=== PATIENT | female | born 1950 | race Caucasian/White ===

== ENCOUNTER → 2016-11-11 | Outpatient (REF) | payer MEDICARE, OTHER ==
[2016-11-11 17:55] LABS: FREE T4 0.96 NG/DL (0.76-1.46)
== END | disposition home or self-care (01) ==
LOC: M SFHCCAPE 07:05
PROVIDERS: ATTEND Physician Assistant
DX: E03.9 Hypothyroidism, unspecified (principal)

== ENCOUNTER → 2016-12-16 | Outpatient (REF) | payer MEDICARE, OTHER ==
[2016-12-16 20:28] LABS: FREE T4 1.09 NG/DL (0.76-1.46)
== END ==
LOC: M SFHCCAPE 07:23
PROVIDERS: ATTEND Physician Assistant
DX: E03.9 Hypothyroidism, unspecified (principal)

== ENCOUNTER → 2016-12-30 | Outpatient (CLI) | payer MEDICARE, OTHER ==
--- NOTE | 2017-01-02 19:20 | SLEEPCENT ---
DATE OF PROCEDURE: ORDERED BY: Ute Colón Nocturnal polysomnography was performed due to concern for the obstructive sleep apnea syndrome in this patient with a history of excessive somnolence and nonrestorative sleep. 7 hours and 28 minutes of data were reviewed. There were 369 minutes of sleep identified. Sleep latency was prolonged at 31 minutes. Rapid eye movement (REM) latency was prolonged at 155 minutes. Sleep architecture showed fragmentation. There was fair sleep progression and three REM periods were noted. The overall sleep efficiency was 83%. Patient's EKG showed a sinus rhythm with an average heart rate of 70 beats per minute. EEG showed reasonably normal wave forms for wake and sleep. There were 131 respiratory events identified of 10 seconds in duration or greater for an apnea-hypopnea index of 21.3. The events were primarily obstructive, not exclusive to sleep stage or body posture associated with oxygen desaturations into the lower 80s. There was also some limb activity noted, with at least three trains of 30 events. Limb movement arousal index was 9.4. IMPRESSION: 1. Moderate obstructive sleep apnea syndrome (G47.33). Apnea-hypopnea index 21.3. 2. Mild periodic limb movement disorder (G47.61). Limb movement arousal index 9.4. RECOMMENDATIONS: Patient should be encouraged to return to the sleep disorder center for pressure therapy. In the interim, alcohol and sedative avoidance should be practiced, and caution exercised during the operation of motor vehicles. Pending the response to pressure therapy, interventions to reduce the frequency of arousals from limb activity may also be helpful.
== END ==
LOC: M SLEEP 19:44
PROVIDERS: ATTEND Nurse Practitioner Adult Health
DX: G47.33 Obstructive sleep apnea (adult) (pediatric) (principal); G47.61 Periodic limb movement disorder

== ENCOUNTER → 2017-04-15 | Outpatient (CLI) | payer MEDICARE, OTHER | LOC: M SLEEP 19:42 | PROVIDERS: ATTEND Nurse Practitioner Adult Health | DX: G47.33 Obstructive sleep apnea (adult) (pediatric) (principal); G47.61 Periodic limb movement disorder ==

== ENCOUNTER → 2017-09-10 | Outpatient (REF) | payer MEDICARE, OTHER ==
[2017-09-10 18:08] LABS: BASO # 0.1 10^3/uL (0.0-0.2); EOS # 0.3 10^3/uL (0.0-0.50); EOS % 3.9 % (0.0-3.0); IMMATURE GRANULOCYTE % 0.4 % (0-0); LYMPH # 0.8 10^3/uL (1.5-4.5); LYMPH % 11.9 % (24.0-44.0); MEAN CORPUSCULAR HEMOGLOBIN 25.8 pg (27.0-33.0); MEAN CORPUSCULAR HGB CONC 31.3 g/dl (32.0-36.5); MEAN CORPUSCULAR VOLUME 82.5 fl (80.0-96.0); MONO # 0.5 10^3/uL (0.0-0.8); MONO % 7.3 % (0.0-5.0); NEUTROPHILS # 5.3 10^3/uL (1.8-7.7); NEUTROPHILS % 75.5 % (36.0-66.0); PLATELET COUNT, AUTOMATED 331 10^3/uL (150-450); RED CELL DISTRIBUTION WIDTH 14.9 % (11.5-14.5)
[2017-09-10 18:24] LABS: ALBUMIN 3.7 GM/DL (3.2-5.2); ALBUMIN/GLOBULIN RATIO 1.09 (1.00-1.93); ALKALINE PHOSPHATASE 104 U/L (45-117); ALT/SGPT 18 U/L (12-78); ANION GAP 7 MEQ/L (8-16); AST/SGOT 10 U/L (7-37); BILIRUBIN,TOTAL 0.7 MG/DL (0.2-1.0); BLOOD UREA NITROGEN 15 MG/DL (7-18); CARBON DIOXIDE LEVEL 26 MEQ/L (21-32); CHLORIDE LEVEL 107 MEQ/L (98-107); CHOLESTEROL LEVEL 235 MG/DL (<200); CREATININE FOR GFR 0.78 MG/DL (0.55-1.02); FREE T4 0.93 NG/DL (0.76-1.46); GLOMERULAR FILTRATION RATE > 60.0 (>45); GLUCOSE, FASTING 102 MG/DL (80-110); POTASSIUM SERUM 4.4 MEQ/L (3.5-5.1); SODIUM LEVEL 140 MEQ/L (136-145); TOTAL PROTEIN 7.1 GM/DL (6.4-8.2); TRIGLYCERIDES LEVEL 228 MG/DL (<150)
== END ==
LOC: M SFHCCAPE 07:18
PROVIDERS: ATTEND Physician Assistant
DX: E03.9 Hypothyroidism, unspecified (principal); E55.9 Vitamin D deficiency, unspecified

== ENCOUNTER → 2018-04-14 | Outpatient (REF) | payer MEDICARE, OTHER ==
[2018-04-16 14:14] LABS: ANTINUCLEAR ANTIBODIES DIRECT Negative (Negative)
== END ==
LOC: M LABDRWCV 16:10
DX: L80 Vitiligo (principal); Z79.899 Other long term (current) drug therapy
CPT/HCPCS: 84443; 86038

== ENCOUNTER → 2018-04-14 | Outpatient (REF) | payer MEDICARE, OTHER ==
[2018-04-14 17:17] LABS: BASO # 0.1 10^3/uL (0.0-0.2); BASO % 1.5 % (0.0-1.0); EOS # 0.2 10^3/uL (0.0-0.50); EOS % 4.6 % (0.0-3.0); HEMATOCRIT 34.4 % (36.0-47.0); HEMOGLOBIN 10.6 g/dl (12.0-15.5); IMMATURE GRANULOCYTE % 0.2 % (0-3.0); LYMPH # 1.1 10^3/uL (1.5-4.5); MEAN CORPUSCULAR HEMOGLOBIN 24.9 pg (27.0-33.0); MEAN CORPUSCULAR HGB CONC 30.8 g/dl (32.0-36.5); MEAN CORPUSCULAR VOLUME 80.9 fl (80.0-96.0); MONO # 0.4 10^3/uL (0.0-0.8); NEUTROPHILS # 2.7 10^3/uL (1.8-7.7); NEUTROPHILS % 59.7 % (36.0-66.0); PLATELET COUNT, AUTOMATED 295 10^3/uL (150-450); RED BLOOD COUNT 4.25 10^6/uL (4.00-5.40); RED CELL DISTRIBUTION WIDTH 14.9 % (11.5-14.5); WHITE BLOOD COUNT 4.6 10^3/uL (4.0-10.0)
[2018-04-14 18:01] LABS: ALBUMIN 3.7 GM/DL (3.2-5.2); ALBUMIN/GLOBULIN RATIO 1.19 (1.00-1.93); ALKALINE PHOSPHATASE 93 U/L (45-117); ALT/SGPT 20 U/L (12-78); ANION GAP 9 MEQ/L (8-16); AST/SGOT 16 U/L (7-37); BILIRUBIN,TOTAL 0.5 MG/DL (0.2-1.0); BLOOD UREA NITROGEN 21 MG/DL (7-18); CALCIUM LEVEL 8.9 MG/DL (8.8-10.2); CARBON DIOXIDE LEVEL 27 MEQ/L (21-32); CHLORIDE LEVEL 109 MEQ/L (98-107); CHOLESTEROL LEVEL 225 MG/DL (<200); CREATININE FOR GFR 0.77 MG/DL (0.55-1.30); FREE T4 0.86 NG/DL (0.76-1.46); GLOMERULAR FILTRATION RATE > 60.0 (>45); GLUCOSE, FASTING 100 MG/DL (70-100); HDL CHOLESTEROL 55 MG/DL (>40); LDL CHOLESTEROL 142.4 MG/DL (<100); NON-HDL-C 170 MG/DL; POTASSIUM SERUM 4.2 MEQ/L (3.5-5.1); SODIUM LEVEL 145 MEQ/L (136-145); TOTAL PROTEIN 6.8 GM/DL (6.4-8.2); TRIGLYCERIDES LEVEL 138 MG/DL (<150)
[2018-04-14 18:02] LABS: TOTAL 25(OH) VITAMIN D 17.9 NG/ML (30.0-100.0)
== END ==
LOC: M SFHCCAPE 07:02
DX: I10 Essential (primary) hypertension (principal); E03.9 Hypothyroidism, unspecified; E78.5 Hyperlipidemia, unspecified; E55.9 Vitamin D deficiency, unspecified
CPT/HCPCS: 84443

== ENCOUNTER → 2018-05-03 | Outpatient (REF) | payer MEDICARE, OTHER ==
[2018-05-03 20:08] LABS: BASO # 0.1 10^3/uL (0.0-0.2); EOS # 0.1 10^3/uL (0.0-0.50); EOS % 2.3 % (0.0-3.0); HEMATOCRIT 35.9 % (36.0-47.0); HEMOGLOBIN 11.2 g/dl (12.0-15.5); IMMATURE GRANULOCYTE % 0.2 % (0-3.0); LYMPH # 0.9 10^3/uL (1.5-4.5); LYMPH % 15.2 % (24.0-44.0); MEAN CORPUSCULAR HEMOGLOBIN 24.9 pg (27.0-33.0); MEAN CORPUSCULAR HGB CONC 31.2 g/dl (32.0-36.5); MONO # 0.4 10^3/uL (0.0-0.8); MONO % 6.6 % (0.0-5.0); NEUTROPHILS # 4.3 10^3/uL (1.8-7.7); NEUTROPHILS % 74.7 % (36.0-66.0); PLATELET COUNT, AUTOMATED 321 10^3/uL (150-450); RED BLOOD COUNT 4.49 10^6/uL (4.00-5.40); RETIC HEMOGLOBIN EQUIVALENT 28.8 pg (24-36); RETICULOCYTE # 52.5 10^9/L (17-77); RETICULOCYTE % 1.2 % (0.5-1.5); WHITE BLOOD COUNT 5.7 10^3/uL (4.0-10.0)
[2018-05-03 20:18] LABS: FERRITIN 6 NG/ML (8-252); IRON (FE) 49 UG/DL (50-170); PERCENT SATURATION 12.1 % (13.2-45.0); TOTAL IRON BINDING CAPACITY 405 UG/DL (250-450)
[2018-05-03 20:23] LABS: APPEARANCE, URINE HAZY (CLEAR); BACTERIA, URINE AUTO NEGATIVE (NEGATIVE); BILIRUBIN, URINE AUTO NEGATIVE (NEGATIVE); BLOOD, URINE BLOOD NEGATIVE (NEGATIVE); COLOR, URINE YELLOW (YELLOW); GLUCOSE, URINE (UA) AUTO NEGATIVE (NEGATIVE); KETONE, URINE AUTO NEGATIVE (NEGATIVE); LEUKOCYTE ESTERASE, URINE AUTO 3+ (NEGATIVE); NITRITE, URINE AUTO NEGATIVE (NEGATIVE); PROTEIN, URINE AUTO NEGATIVE (NEGATIVE); RBC, URINE AUTO 0 /HPF (0-3); SPECIFIC GRAVITY URINE AUTO 1.014 (1.002-1.035); SQUAMOUS EPITHELIAL CELL UR AU 2 /HPF (0-6); UROBILINOGEN, URINE AUTO 0.2 mg/dL (0.0-2.0); WBC, URINE AUTO 2 /HPF (0-3)
[2018-05-05 09:05] LABS: HAPTOGLOBIN 106 mg/dL (34-200)
[2018-05-05 09:05] LABS: LDL DIRECT 147 mg/dL (0-99)
== END ==
LOC: M SFHCCAPE 09:47
DX: D64.9 Anemia, unspecified (principal); L80 Vitiligo; E55.9 Vitamin D deficiency, unspecified; Z12.11 Encounter for screening for malignant neoplasm of colon; K21.9 Gastro-esophageal reflux disease without esophagitis; M17.0 Bilateral primary osteoarthritis of knee; I10 Essential (primary) hypertension; G47.33 Obstructive sleep apnea (adult) (pediatric); Z79.899 Other long term (current) drug therapy
CPT/HCPCS: 83010

== ENCOUNTER → 2018-06-29 | Outpatient (REF) | payer MEDICARE, OTHER ==
[2018-07-01 14:18] LABS: TISSUE TRANSGLUTAMINASE IgA <2 U/mL (0-3)
== END ==
LOC: M LABDRWCV 16:24
DX: D50.9 Iron deficiency anemia, unspecified (principal)
CPT/HCPCS: 82784

== ENCOUNTER → 2018-06-29 | Outpatient (REF) | payer MEDICARE, OTHER ==
[2018-06-29 17:48] LABS: BASO # 0.1 10^3/uL (0.0-0.2); BASO % 1.2 % (0.0-1.0); EOS # 0.3 10^3/uL (0.0-0.50); EOS % 5.4 % (0.0-3.0); HEMATOCRIT 34.3 % (36.0-47.0); HEMOGLOBIN 10.7 g/dl (12.0-15.5); IMMATURE GRANULOCYTE % 0.2 % (0-3.0); LYMPH # 1.3 10^3/uL (1.5-4.5); LYMPH % 26.4 % (24.0-44.0); MEAN CORPUSCULAR HGB CONC 31.2 g/dl (32.0-36.5); MEAN CORPUSCULAR VOLUME 80.1 fl (80.0-96.0); MONO # 0.4 10^3/uL (0.0-0.8); MONO % 8.5 % (0.0-5.0); NEUTROPHILS # 2.8 10^3/uL (1.8-7.7); NEUTROPHILS % 58.3 % (36.0-66.0); PLATELET COUNT, AUTOMATED 337 10^3/uL (150-450); RED BLOOD COUNT 4.28 10^6/uL (4.00-5.40); RED CELL DISTRIBUTION WIDTH 16.1 % (11.5-14.5); WHITE BLOOD COUNT 4.8 10^3/uL (4.0-10.0)
[2018-06-29 18:08] LABS: ALBUMIN 3.7 GM/DL (3.2-5.2); ALBUMIN/GLOBULIN RATIO 1.16 (1.00-1.93); ALKALINE PHOSPHATASE 91 U/L (45-117); ALT/SGPT 20 U/L (12-78); ANION GAP 9 MEQ/L (8-16); AST/SGOT 12 U/L (7-37); BILIRUBIN,TOTAL 0.5 MG/DL (0.2-1.0); BLOOD UREA NITROGEN 18 MG/DL (7-18); CARBON DIOXIDE LEVEL 28 MEQ/L (21-32); CHLORIDE LEVEL 107 MEQ/L (98-107); CREATININE FOR GFR 0.76 MG/DL (0.55-1.30); GLOMERULAR FILTRATION RATE > 60.0 (>45); GLUCOSE, FASTING 98 MG/DL (70-100); IRON (FE) 34 UG/DL (50-170); PERCENT SATURATION 9.2 % (13.2-45.0); POTASSIUM SERUM 4.2 MEQ/L (3.5-5.1); SODIUM LEVEL 144 MEQ/L (136-145); TOTAL IRON BINDING CAPACITY 369 UG/DL (250-450); TOTAL PROTEIN 6.9 GM/DL (6.4-8.2)
[2018-06-29 18:09] LABS: FERRITIN 6 NG/ML (8-252); FREE T4 0.79 NG/DL (0.76-1.46)
[2018-06-30 08:04] LABS: TOTAL 25(OH) VITAMIN D 43.1 NG/ML (30.0-100.0)
== END ==
LOC: M SFHCCAPE 07:16
DX: E03.9 Hypothyroidism, unspecified (principal); E55.9 Vitamin D deficiency, unspecified; I10 Essential (primary) hypertension; D50.9 Iron deficiency anemia, unspecified
CPT/HCPCS: 83550

== ENCOUNTER 2018-07-16 08:38 | Day surgery (SDC) | payer MEDICARE, OTHER ==
[~2018-07-16 08:38] MED LIST: LIDOCAINE 2% INJ 100 MG/5 ML SDV (FOR ANES.) As Ordered; PROPOFOL 200 MG/20 ML VIAL As Ordered
[2018-07-16] MEDS: NS 1,000 ML IV (09:03)
[2018-07-16] MEDS ORDERED: PROPOFOL 200 MG/20 ML VIAL As Ordered (09:59)
== END 2018-07-16 10:49 | disposition home or self-care (01) ==
LOC: M OPP 08:38
DX: D50.9 Iron deficiency anemia, unspecified (principal); D12.5 Benign neoplasm of sigmoid colon; K57.30 Diverticulosis of large intestine without perforation or abscess without bleeding; K21.0 Gastro-esophageal reflux disease with esophagitis; K44.9 Diaphragmatic hernia without obstruction or gangrene; M19.90 Unspecified osteoarthritis, unspecified site; R06.83 Snoring; G47.30 Sleep apnea, unspecified; Z85.848 Personal history of malignant neoplasm of other parts of nervous tissue; Z88.5 Allergy status to narcotic agent; Z88.0 Allergy status to penicillin; Z79.899 Other long term (current) drug therapy; Z80.1 Family history of malignant neoplasm of trachea, bronchus and lung; Z80.0 Family history of malignant neoplasm of digestive organs; Z80.3 Family history of malignant neoplasm of breast
CPT/HCPCS: 45385

== ENCOUNTER → 2018-08-12 | Outpatient (CLI) | payer MEDICARE, OTHER | LOC: M RAD 14:14 | DX: T18.4XXA Foreign body in colon, initial encounter (principal); T18.3XXA Foreign body in small intestine, initial encounter; X58.XXXA Exposure to other specified factors, initial encounter; Y92.9 Unspecified place or not applicable | CPT/HCPCS: 74019 ==

== ENCOUNTER → 2018-11-04 | Outpatient (REF) | payer MEDICARE, OTHER ==
[~2018-11-04] MED LIST changes: +HYDR25TAB PO; -LIDOCAINE 2% INJ 100 MG/5 ML SDV (FOR ANES.) As Ordered; +LORA-243 PO; +MULTCAP PO; -PROPOFOL 200 MG/20 ML VIAL As Ordered; +VITA50005 PO
[2018-11-04 17:42] LABS: BASO # 0.1 10^3/uL (0.0-0.2); BASO % 1.2 % (0.0-1.0); EOS # 0.4 10^3/uL (0.0-0.50); EOS % 6.3 % (0.0-3.0); HEMATOCRIT 36.7 % (36.0-47.0); HEMOGLOBIN 11.6 g/dl (12.0-15.5); LYMPH # 1.3 10^3/uL (1.5-4.5); LYMPH % 23.3 % (24.0-44.0); MEAN CORPUSCULAR HEMOGLOBIN 25.2 pg (27.0-33.0); MEAN CORPUSCULAR HGB CONC 31.6 g/dl (32.0-36.5); MEAN CORPUSCULAR VOLUME 79.6 fl (80.0-96.0); MONO # 0.5 10^3/uL (0.0-0.8); MONO % 8.1 % (0.0-5.0); NEUTROPHILS # 3.5 10^3/uL (1.8-7.7); NEUTROPHILS % 60.7 % (36.0-66.0); PLATELET COUNT, AUTOMATED 319 10^3/uL (150-450); RED BLOOD COUNT 4.61 10^6/uL (4.00-5.40); WHITE BLOOD COUNT 5.7 10^3/uL (4.0-10.0)
[2018-11-04 17:45] LABS: ALBUMIN 3.8 GM/DL (3.2-5.2); ALT/SGPT 20 U/L (12-78); BILIRUBIN,TOTAL 0.5 MG/DL (0.2-1.0); BLOOD UREA NITROGEN 20 MG/DL (7-18); CALCIUM LEVEL 8.7 MG/DL (8.8-10.2); CARBON DIOXIDE LEVEL 28 MEQ/L (21-32); CHLORIDE LEVEL 105 MEQ/L (98-107); CHOLESTEROL LEVEL 239 MG/DL (<200); CHOLESTEROL RISK RATIO 3.793 (<5); CREATININE FOR GFR 0.86 MG/DL (0.55-1.30); FERRITIN 7 NG/ML (8-252); FREE T4 0.96 NG/DL (0.76-1.46); GLOMERULAR FILTRATION RATE > 60.0 (>39); GLUCOSE, FASTING 93 MG/DL (70-100); HDL CHOLESTEROL 63 MG/DL (>40); IRON (FE) 41 UG/DL (50-170); LDL CHOLESTEROL 152 MG/DL (<100); NON-HDL-C 176 MG/DL; PERCENT SATURATION 10.8 % (13.2-45.0); SODIUM LEVEL 141 MEQ/L (136-145); TOTAL IRON BINDING CAPACITY 381 UG/DL (250-450); TOTAL PROTEIN 6.9 GM/DL (6.4-8.2); TRIGLYCERIDES LEVEL 122 MG/DL (<150)
[2018-11-04 17:48] LABS: TOTAL 25(OH) VITAMIN D 45.4 NG/ML (30.0-100.0)
== END ==
LOC: M SFHCCAPE 07:19
PROVIDERS: ATTEND Physician Assistant
DX: D50.9 Iron deficiency anemia, unspecified (principal); E78.5 Hyperlipidemia, unspecified; E03.9 Hypothyroidism, unspecified; E55.9 Vitamin D deficiency, unspecified

== ENCOUNTER → 2019-01-04 | Outpatient (REF) | payer MEDICARE, OTHER ==
[2019-01-04 17:07] LABS: BASO # 0.1 10^3/uL (0.0-0.2); BASO % 1.2 % (0.0-1.0); EOS # 0.3 10^3/uL (0.0-0.50); EOS % 5.4 % (0.0-3.0); HEMATOCRIT 36.1 % (36.0-47.0); HEMOGLOBIN 11.3 g/dl (12.0-15.5); LYMPH # 1.1 10^3/uL (1.5-4.5); MEAN CORPUSCULAR HEMOGLOBIN 25.2 pg (27.0-33.0); MEAN CORPUSCULAR HGB CONC 31.3 g/dl (32.0-36.5); MEAN CORPUSCULAR VOLUME 80.6 fl (80.0-96.0); MONO # 0.5 10^3/uL (0.0-0.8); MONO % 10.1 % (0.0-5.0); NEUTROPHILS % 60.1 % (36.0-66.0); PLATELET COUNT, AUTOMATED 297 10^3/uL (150-450); RED BLOOD COUNT 4.48 10^6/uL (4.00-5.40)
[2019-01-04 17:15] LABS: ALBUMIN 3.7 GM/DL (3.2-5.2); ALT/SGPT 21 U/L (12-78); BILIRUBIN,TOTAL 0.4 MG/DL (0.2-1.0); BLOOD UREA NITROGEN 24 MG/DL (7-18); CALCIUM LEVEL 8.6 MG/DL (8.8-10.2); CARBON DIOXIDE LEVEL 31 MEQ/L (21-32); CHLORIDE LEVEL 105 MEQ/L (98-107); CREATININE FOR GFR 0.77 MG/DL (0.55-1.30); FERRITIN 9 NG/ML (8-252); FREE T4 1.11 NG/DL (0.76-1.46); GLOMERULAR FILTRATION RATE > 60.0 (>39); GLUCOSE, FASTING 101 MG/DL (70-100); IRON (FE) 32 UG/DL (50-170); PERCENT SATURATION 8.5 % (13.2-45.0); POTASSIUM SERUM 4.3 MEQ/L (3.5-5.1); SODIUM LEVEL 141 MEQ/L (136-145); TOTAL IRON BINDING CAPACITY 377 UG/DL (250-450); TOTAL PROTEIN 6.8 GM/DL (6.4-8.2)
== END ==
LOC: M SFHCCAPE 07:13
PROVIDERS: ATTEND Physician Assistant
DX: D50.9 Iron deficiency anemia, unspecified (principal); E03.9 Hypothyroidism, unspecified

== ENCOUNTER → 2019-04-05 | Outpatient (REF) | payer MEDICARE, OTHER ==
[2019-04-05 17:09] LABS: ALBUMIN 3.5 GM/DL (3.2-5.2); ALT/SGPT 25 U/L (12-78); BILIRUBIN,TOTAL 0.4 MG/DL (0.2-1.0); BLOOD UREA NITROGEN 17 MG/DL (7-18); CALCIUM LEVEL 8.5 MG/DL (8.8-10.2); CARBON DIOXIDE LEVEL 26 MEQ/L (21-32); CHLORIDE LEVEL 109 MEQ/L (98-107); CHOLESTEROL LEVEL 205 MG/DL (<200); CHOLESTEROL RISK RATIO 3.596 (<5); CREATININE FOR GFR 0.78 MG/DL (0.55-1.30); FERRITIN 10 NG/ML (8-252); GLOMERULAR FILTRATION RATE > 60.0 (>39); GLUCOSE, FASTING 94 MG/DL (70-100); HDL CHOLESTEROL 57 MG/DL (>40); IRON (FE) 36 UG/DL (50-170); LDL CHOLESTEROL 124 MG/DL (<100); NON-HDL-C 148 MG/DL; PERCENT SATURATION 9.9 % (13.2-45.0); POTASSIUM SERUM 4.2 MEQ/L (3.5-5.1); SODIUM LEVEL 143 MEQ/L (136-145); TOTAL 25(OH) VITAMIN D 51.1 NG/ML (30.0-100.0); TOTAL IRON BINDING CAPACITY 362 UG/DL (250-450); TOTAL PROTEIN 6.9 GM/DL (6.4-8.2); TRIGLYCERIDES LEVEL 121 MG/DL (<150)
[2019-04-05 17:11] LABS: BASO # 0.1 10^3/uL (0.0-0.2); BASO % 1.7 % (0.0-1.0); EOS # 0.2 10^3/uL (0.0-0.50); EOS % 5.7 % (0.0-3.0); HEMATOCRIT 36.8 % (36.0-47.0); HEMOGLOBIN 11.9 g/dl (12.0-15.5); LYMPH # 1.1 10^3/uL (1.5-4.5); MEAN CORPUSCULAR HEMOGLOBIN 27.9 pg (27.0-33.0); MEAN CORPUSCULAR HGB CONC 32.3 g/dl (32.0-36.5); MEAN CORPUSCULAR VOLUME 86.2 fl (80.0-96.0); MONO # 0.4 10^3/uL (0.0-0.8); MONO % 9.7 % (0.0-5.0); NEUTROPHILS # 2.4 10^3/uL (1.8-7.7); NEUTROPHILS % 57.4 % (36.0-66.0); PLATELET COUNT, AUTOMATED 287 10^3/uL (150-450); RED BLOOD COUNT 4.27 10^6/uL (4.00-5.40); WHITE BLOOD COUNT 4.2 10^3/uL (4.0-10.0)
[2019-04-05 17:25] LABS: HEMOGLOBIN A1c 5.7 %
== END ==
LOC: M SFHCCAPE 07:31
PROVIDERS: ATTEND Physician Assistant
DX: D50.9 Iron deficiency anemia, unspecified (principal); E78.5 Hyperlipidemia, unspecified; E03.9 Hypothyroidism, unspecified; E55.9 Vitamin D deficiency, unspecified

== ENCOUNTER → 2019-07-12 | Outpatient (REF) | payer MEDICARE, OTHER ==
[2019-07-12 17:34] LABS: BASO # 0.1 10^3/uL (0.0-0.2); BASO % 0.9 % (0.0-1.0); EOS # 0.5 10^3/uL (0.0-0.5); EOS % 8.8 % (0.0-3.0); HEMATOCRIT 40.3 % (36.0-47.0); HEMOGLOBIN 13.2 g/dl (12.0-15.5); LYMPH # 1.2 10^3/uL (1.5-5.0); LYMPH % 22.5 % (24.0-44.0); MEAN CORPUSCULAR HEMOGLOBIN 28.2 pg (27.0-33.0); MEAN CORPUSCULAR HGB CONC 32.8 g/dl (32.0-36.5); MEAN CORPUSCULAR VOLUME 86.1 fl (80.0-96.0); MONO # 0.5 10^3/uL (0.0-0.8); MONO % 9.6 % (0.0-5.0); NEUTROPHILS # 3.1 10^3/uL (1.5-8.5); PLATELET COUNT, AUTOMATED 277 10^3/uL (150-450); RED BLOOD COUNT 4.68 10^6/uL (4.00-5.40); WHITE BLOOD COUNT 5.3 10^3/uL (4.0-10.0)
[2019-07-12 17:47] LABS: ALBUMIN 3.6 GM/DL (3.2-5.2); ALT/SGPT 19 U/L (12-78); BILIRUBIN,TOTAL 0.6 MG/DL (0.2-1.0); BLOOD UREA NITROGEN 24 MG/DL (7-18); CALCIUM LEVEL 8.9 MG/DL (8.8-10.2); CARBON DIOXIDE LEVEL 30 MEQ/L (21-32); CHLORIDE LEVEL 105 MEQ/L (98-107); CHOLESTEROL LEVEL 196 MG/DL (<200); CREATININE FOR GFR 0.74 MG/DL (0.55-1.30); FREE T4 0.91 NG/DL (0.76-1.46); GLOMERULAR FILTRATION RATE > 60.0 (>39); GLUCOSE, FASTING 94 MG/DL (70-100); HDL CHOLESTEROL 50 MG/DL (>40); LDL CHOLESTEROL 104 MG/DL (<100); NON-HDL-C 146 MG/DL; POTASSIUM SERUM 4.1 MEQ/L (3.5-5.1); SODIUM LEVEL 141 MEQ/L (136-145); TOTAL PROTEIN 6.7 GM/DL (6.4-8.2); TRIGLYCERIDES LEVEL 208 MG/DL (<150)
[2019-07-12 17:49] LABS: TOTAL 25(OH) VITAMIN D 48.5 NG/ML (30.0-100.0)
[2019-07-12 19:56] LABS: HEMOGLOBIN A1c 5.8 %
== END ==
LOC: M SFHCCAPE 07:03
PROVIDERS: ATTEND Physician Assistant
DX: I10 Essential (primary) hypertension (principal); E03.9 Hypothyroidism, unspecified; R73.09 Other abnormal glucose; E78.5 Hyperlipidemia, unspecified; E55.9 Vitamin D deficiency, unspecified

== ENCOUNTER → 2019-11-07 | Outpatient (REF) | payer MEDICARE, OTHER | LOC: M SFHCCAPE 11:18 | PROVIDERS: ATTEND Physician Assistant | DX: J01.90 Acute sinusitis, unspecified (principal) ==

== ENCOUNTER → 2019-11-24 | Outpatient (CLI) | payer MEDICARE, OTHER ==
--- NOTE | 2019-11-24 16:51 | REP ---
Right ankle: Four views. History: Acute right ankle pain. Findings: Four views right ankle demonstrate moderate to advanced ankle joint osteoarthritis. There is mild medial and anterior soft tissue swelling. Achilles and plantar calcaneal spurring is noted. There are soft tissue calcifications in the distal calf. Impression: Moderate to advanced ankle joint osteoarthritis. No acute bony abnormality is noted. Heel spurs. 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 There is some diffuse soft tissue swelling. Electronically Signed by Marquis Grissom MD 11/24/2019 04:59 P
== END ==
LOC: M CLY 14:57
PROVIDERS: ATTEND Nurse Practitioner Family
DX: M19.071 Primary osteoarthritis, right ankle and foot (principal); M25.571 Pain in right ankle and joints of right foot
CPT/HCPCS: 36415; 73610; 80048; 84550; 85025; G0463

== ENCOUNTER → 2019-11-24 | Outpatient (REF) | payer MEDICARE, OTHER ==
[2019-11-24 17:51] LABS: BLOOD UREA NITROGEN 18 MG/DL (7-18); CALCIUM LEVEL 9.2 MG/DL (8.8-10.2); CARBON DIOXIDE LEVEL 30 MEQ/L (21-32); CHLORIDE LEVEL 106 MEQ/L (98-107); CREATININE FOR GFR 0.77 MG/DL (0.55-1.30); GLOMERULAR FILTRATION RATE > 60.0 (>39); GLUCOSE, FASTING 102 MG/DL (70-100); POTASSIUM SERUM 3.9 MEQ/L (3.5-5.1); SODIUM LEVEL 141 MEQ/L (136-145); URIC ACID 3.8 MG/DL (2.6-6.0)
[2019-11-24 17:52] LABS: BASO # 0.1 10^3/uL (0.0-0.2); EOS # 0.3 10^3/uL (0.0-0.5); EOS % 4.7 % (0.0-3.0); HEMATOCRIT 39.7 % (36.0-47.0); LYMPH # 1.1 10^3/uL (1.5-5.0); MEAN CORPUSCULAR HEMOGLOBIN 29.1 pg (27.0-33.0); MEAN CORPUSCULAR HGB CONC 32.7 g/dl (32.0-36.5); MONO # 0.6 10^3/uL (0.0-0.8); MONO % 9.6 % (0.0-5.0); NEUTROPHILS # 4.2 10^3/uL (1.5-8.5); NEUTROPHILS % 67.2 % (36.0-66.0); PLATELET COUNT, AUTOMATED 265 10^3/uL (150-450); RED BLOOD COUNT 4.46 10^6/uL (4.00-5.40); WHITE BLOOD COUNT 6.2 10^3/uL (4.0-10.0)
== END ==
LOC: M SFHCCAPE 10:54
PROVIDERS: ATTEND Nurse Practitioner Family
DX: M25.571 Pain in right ankle and joints of right foot (principal)

== ENCOUNTER → 2019-12-08 | Outpatient (REF) | payer MEDICARE, OTHER ==
[2019-12-08 16:44] LABS: BASO % 0.5 % (0.0-1.0); EOS # 0.3 10^3/uL (0.0-0.5); EOS % 4.7 % (0.0-3.0); HEMOGLOBIN 13.2 g/dl (12.0-15.5); LYMPH # 0.9 10^3/uL (1.5-5.0); LYMPH % 13.3 % (24.0-44.0); MEAN CORPUSCULAR HEMOGLOBIN 28.5 pg (27.0-33.0); MEAN CORPUSCULAR HGB CONC 31.4 g/dl (32.0-36.5); MEAN CORPUSCULAR VOLUME 90.7 fl (80.0-96.0); MONO # 0.5 10^3/uL (0.0-0.8); MONO % 7.8 % (0.0-5.0); NEUTROPHILS # 4.8 10^3/uL (1.5-8.5); NEUTROPHILS % 73.5 % (36.0-66.0); PLATELET COUNT, AUTOMATED 295 10^3/uL (150-450); RED BLOOD COUNT 4.63 10^6/uL (4.00-5.40); WHITE BLOOD COUNT 6.6 10^3/uL (4.0-10.0)
[2019-12-08 16:55] LABS: ALBUMIN 3.6 GM/DL (3.2-5.2); ALT/SGPT 20 U/L (12-78); BILIRUBIN,TOTAL 0.5 MG/DL (0.2-1.0); BLOOD UREA NITROGEN 24 MG/DL (7-18); CALCIUM LEVEL 9.2 MG/DL (8.8-10.2); CARBON DIOXIDE LEVEL 30 MEQ/L (21-32); CHLORIDE LEVEL 106 MEQ/L (98-107); CHOLESTEROL LEVEL 196 MG/DL (<200); CHOLESTEROL RISK RATIO 3.213 (<5); FREE T4 1.28 NG/DL (0.76-1.46); GLOMERULAR FILTRATION RATE > 60.0 (>39); GLUCOSE, FASTING 94 MG/DL (70-100); HDL CHOLESTEROL 61 MG/DL (>40); LDL CHOLESTEROL 117 MG/DL (<100); NON-HDL-C 135 MG/DL; POTASSIUM SERUM 4.3 MEQ/L (3.5-5.1); SODIUM LEVEL 141 MEQ/L (136-145); THYROID STIMULATING HORMONE 0.756 uIU/ML (0.358-3.740); TOTAL PROTEIN 6.8 GM/DL (6.4-8.2); TRIGLYCERIDES LEVEL 92 MG/DL (<150)
[2019-12-09 11:10] LABS: TOTAL 25(OH) VITAMIN D 56.3 NG/ML (30.0-100.0)
== END ==
LOC: M SFHCCAPE 07:45
PROVIDERS: ATTEND Physician Assistant
DX: E55.9 Vitamin D deficiency, unspecified (principal); E78.5 Hyperlipidemia, unspecified

== ENCOUNTER → 2020-08-27 | Outpatient (REF) | payer MEDICARE, OTHER ==
[2020-08-27 13:58] LABS: HEMATOCRIT 43.4 % (36.0-47.0); HEMOGLOBIN 13.9 g/dl (12.0-15.5); MEAN CORPUSCULAR HEMOGLOBIN 29.6 pg (27.0-33.0); MEAN CORPUSCULAR VOLUME 92.5 fl (80.0-96.0); PLATELET COUNT, AUTOMATED 289 10^3/uL (150-450); RED BLOOD COUNT 4.69 10^6/uL (4.00-5.40); WHITE BLOOD COUNT 5.4 10^3/uL (4.0-10.0)
[2020-08-27 14:40] LABS: BLOOD UREA NITROGEN 17 MG/DL (7-18); CALCIUM LEVEL 9.7 MG/DL (8.8-10.2); CARBON DIOXIDE LEVEL 29 MEQ/L (21-32); CHLORIDE LEVEL 104 MEQ/L (98-107); CHOLESTEROL LEVEL 246 MG/DL (<200); FERRITIN 32 NG/ML (8-252); GLOMERULAR FILTRATION RATE > 60.0 (>39); GLUCOSE, FASTING 106 MG/DL (70-100); HDL CHOLESTEROL 60 MG/DL (>40); IRON (FE) 95 UG/DL (50-170); LDL CHOLESTEROL 155 MG/DL (<100); NON-HDL-C 186 MG/DL; PERCENT SATURATION 30.4 % (13.2-45.0); POTASSIUM SERUM 4.1 MEQ/L (3.5-5.1); SODIUM LEVEL 137 MEQ/L (136-145); TOTAL 25(OH) VITAMIN D 72.7 NG/ML (30.0-100.0); TOTAL IRON BINDING CAPACITY 313 UG/DL (250-450); TRIGLYCERIDES LEVEL 154 MG/DL (<150)
== END ==
LOC: M SFHCPLAZ 09:45
PROVIDERS: ATTEND Family Medicine
DX: D50.9 Iron deficiency anemia, unspecified (principal); E78.2 Mixed hyperlipidemia; I10 Essential (primary) hypertension; E03.9 Hypothyroidism, unspecified; E55.9 Vitamin D deficiency, unspecified
CPT/HCPCS: 36415; 80048; 80061; 82306; 82728; 83550; 84443; 85027; G0463

== ENCOUNTER → 2021-01-01 | Outpatient (REF) | payer MEDICARE, OTHER ==
[~2021-01-01] MED LIST changes: +HYDR-3490 PO; -HYDR25TAB PO
[2021-01-01 14:24] LABS: HEMATOCRIT 42.9 % (36.0-47.0); HEMOGLOBIN 14.1 g/dl (12.0-15.5); MEAN CORPUSCULAR HEMOGLOBIN 30.6 pg (27.0-33.0); MEAN CORPUSCULAR HGB CONC 32.9 g/dl (32.0-36.5); MEAN CORPUSCULAR VOLUME 93.1 fl (80.0-96.0); PLATELET COUNT, AUTOMATED 263 10^3/uL (150-450); RED BLOOD COUNT 4.61 10^6/uL (4.00-5.40)
[2021-01-01 14:27] LABS: BLOOD UREA NITROGEN 26 MG/DL (7-18); CALCIUM LEVEL 9.7 MG/DL (8.8-10.2); CARBON DIOXIDE LEVEL 30 MEQ/L (21-32); CHLORIDE LEVEL 107 MEQ/L (98-107); CREATININE FOR GFR 0.75 MG/DL (0.55-1.30); GLOMERULAR FILTRATION RATE > 60.0 (>39); GLUCOSE, FASTING 103 MG/DL (70-100); POTASSIUM SERUM 4.4 MEQ/L (3.5-5.1); SODIUM LEVEL 142 MEQ/L (136-145)
== END ==
LOC: M SFHCPLAZ 10:26
PROVIDERS: ATTEND Family Medicine
DX: Z01.818 Encounter for other preprocedural examination (principal); M25.562 Pain in left knee
CPT/HCPCS: 36415; 80048; 85027; 93005; G0463

== ENCOUNTER → 2021-06-06 | Outpatient (REF) | payer MEDICARE, OTHER ==
[2021-06-06 12:39] LABS: BLOOD UREA NITROGEN 16 MG/DL (7-18); CALCIUM LEVEL 8.6 MG/DL (8.8-10.2); CARBON DIOXIDE LEVEL 30 MEQ/L (21-32); CHLORIDE LEVEL 108 MEQ/L (98-107); CHOLESTEROL LEVEL 123 MG/DL (<200); CREATININE FOR GFR 0.57 MG/DL (0.55-1.30); GLOMERULAR FILTRATION RATE > 60.0 (>39); GLUCOSE, FASTING 87 MG/DL (70-100); HDL CHOLESTEROL 50 MG/DL (>40); LDL CHOLESTEROL 52 MG/DL (<100); NON-HDL-C 73 MG/DL; SODIUM LEVEL 142 MEQ/L (136-145); THYROID STIMULATING HORMONE 0.927 uIU/ML (0.358-3.740); TOTAL 25(OH) VITAMIN D 82.5 NG/ML (30.0-100.0); TRIGLYCERIDES LEVEL 105 MG/DL (<150)
== END ==
LOC: M SFHCCLAY 08:29
PROVIDERS: ATTEND Family Medicine
DX: E78.2 Mixed hyperlipidemia (principal); I10 Essential (primary) hypertension; E03.9 Hypothyroidism, unspecified; E55.9 Vitamin D deficiency, unspecified

== ENCOUNTER → 2022-09-10 | Outpatient (REF) | payer MEDICARE, OTHER ==
[2022-09-10 12:18] LABS: BASO # 0.1 10^3/uL (0.0-0.2); EOS # 0.3 10^3/uL (0.0-0.5); EOS % 4.1 % (0.0-3.0); HEMOGLOBIN 12.2 g/dl (12.0-15.5); LYMPH # 0.9 10^3/uL (1.5-5.0); LYMPH % 14.5 % (24.0-44.0); MEAN CORPUSCULAR HGB CONC 32.1 g/dl (32.0-36.5); MEAN CORPUSCULAR VOLUME 93.6 fl (80.0-96.0); MONO # 0.5 10^3/uL (0.0-0.8); MONO % 8.1 % (2.0-8.0); NEUTROPHILS # 4.5 10^3/uL (1.5-8.5); NEUTROPHILS % 72.1 % (36.0-66.0); PLATELET COUNT, AUTOMATED 315 10^3/uL (150-450); RED BLOOD COUNT 4.06 10^6/uL (4.00-5.40); WHITE BLOOD COUNT 6.3 10^3/uL (4.0-10.0)
[2022-09-10 13:02] LABS: ALBUMIN 3.8 GM/DL (3.2-5.2); ALT/SGPT 28 U/L (12-78); BILIRUBIN,TOTAL 0.6 MG/DL (0.2-1.0); BLOOD UREA NITROGEN 16 MG/DL (7-18); CALCIUM LEVEL 9.5 MG/DL (8.8-10.2); CARBON DIOXIDE LEVEL 30 MEQ/L (21-32); CHLORIDE LEVEL 106 MEQ/L (98-107); CHOLESTEROL LEVEL 144 MG/DL (<200); CHOLESTEROL RISK RATIO 2.322 (<5); CREATININE FOR GFR 0.73 MG/DL (0.55-1.30); FREE T4 1.09 NG/DL (0.76-1.46); GLOMERULAR FILTRATION RATE > 60.0 (>39); GLUCOSE, FASTING 95 MG/DL (70-100); HDL CHOLESTEROL 62 MG/DL (>40); LDL CHOLESTEROL 54 MG/DL (<100); NON-HDL-C 82 MG/DL; SODIUM LEVEL 139 MEQ/L (136-145); TOTAL PROTEIN 6.8 GM/DL (6.4-8.2); TRIGLYCERIDES LEVEL 141 MG/DL (<150)
[2022-09-10 20:27] LABS: HEMOGLOBIN A1c 5.2 %
== END ==
LOC: M SFHCCLAY 09:01
PROVIDERS: ATTEND Physician Assistant
DX: E03.9 Hypothyroidism, unspecified (principal); E78.2 Mixed hyperlipidemia; Z13.1 Encounter for screening for diabetes mellitus

== ENCOUNTER → 2022-11-24 | Outpatient (CLI) | payer MEDICARE, OTHER | LOC: M CLY 10:27 | PROVIDERS: ATTEND Physician Assistant | DX: M25.512 Pain in left shoulder (principal) ==

== ENCOUNTER 2023-04-04 22:37 | Inpatient (IN) | payer MEDICARE, OTHER ==
[~2023-04-04] VITALS: Ht 167.6 cm; Wt 97.5 kg
[2023-04-04] MEDS ORDERED: ONDANSETRON 4MG 2ML VIAL IV ONE (23:05)
[2023-04-04] MEDS ORDERED: fentaNYL 100 MCG/2 ML INJECTION IV ONE (23:05)
[2023-04-04 23:17] LABS: BASO # 0.1 10^3/uL (0.0-0.2); BASO % 0.4 % (0.0-1.0); EOS # 0.2 10^3/uL (0.0-0.5); EOS % 1.7 % (0.0-3.0); HEMATOCRIT 33.3 % (36.0-47.0); HEMOGLOBIN 10.9 g/dl (12.0-15.5); LYMPH # 1.1 10^3/uL (1.5-5.0); LYMPH % 9.5 % (24.0-44.0); MEAN CORPUSCULAR HEMOGLOBIN 29.4 pg (27.0-33.0); MEAN CORPUSCULAR HGB CONC 32.7 g/dl (32.0-36.5); MEAN CORPUSCULAR VOLUME 89.8 fl (80.0-96.0); MONO # 0.7 10^3/uL (0.0-0.8); MONO % 5.5 % (2.0-8.0); NEUTROPHILS # 9.6 10^3/uL (1.5-8.5); PLATELET COUNT, AUTOMATED 251 10^3/uL (150-450); RED BLOOD COUNT 3.71 10^6/uL (4.00-5.40); WHITE BLOOD COUNT 11.7 10^3/uL (4.0-10.0)
[2023-04-04 23:40] LABS: CPK CREATINE PHOSPHOKINASE 208 U/L (34-145)
[2023-04-04 23:41] LABS: BLOOD UREA NITROGEN 18 MG/DL (9-23); CALCIUM LEVEL 8.7 MG/DL (8.3-10.6); CARBON DIOXIDE LEVEL 28 MMOL/L (20-31); CHLORIDE LEVEL 107 MMOL/L (98-107); CK-MB VALUE MASS 2.1 NG/ML (<3.6); CREATININE FOR GFR 0.72 MG/DL (0.55-1.30); GLOMERULAR FILTRATION RATE > 60.0 (>39); GLUCOSE, FASTING 151 MG/DL (74-106); POTASSIUM SERUM 3.6 MMOL/L (3.5-5.1); SODIUM LEVEL 141 MMOL/L (136-145)
[2023-04-04 23:47] LABS: RSV AMPLIFICATION NEGATIVE (NEGATIVE)
[2023-04-05] VITALS (7 sets, daily range): BP systolic 99–161; BP diastolic 53–67
[2023-04-05] MEDS ORDERED: ACETAMINOPHEN 1000MG 100ML IV BAG IV ONE (00:05)
[2023-04-05] MEDS ORDERED: carisoprodoL 350 MG TAB PO PRN (01:00)
[2023-04-05] MEDS ORDERED: ONDANSETRON 4MG 2ML VIAL IV PRN ×2 (01:00→05:00)
[2023-04-05] MEDS ORDERED: ERGO500029 PO (01:02)
[2023-04-05] MEDS ORDERED: ATOR1TAB21 PO (01:02)
[2023-04-05] MEDS ORDERED: LOSA100T46 PO (01:02)
[2023-04-05] MEDS ORDERED: AMLO1TAB24 PO (01:02)
[2023-04-05] MEDS ORDERED: IBUP80TA PO (01:02)
[2023-04-05] MEDS ORDERED: ACET-683 PO (01:02)
[2023-04-05] MEDS ORDERED: THERTAB52 PO (01:02)
[2023-04-05] MEDS ORDERED: LEVO75TA4 PO (01:02)
[2023-04-05] MEDS ORDERED: HOME MED LIST COMPLETE! XX SCH (01:05)
[2023-04-05] MEDS: LR 1,000 ML IV SCH ×3 (01:35→21:35)
[2023-04-05] MEDS: amLODIPine 5 MG TAB PO SCH ×2 (01:40→21:00)
[2023-04-05] MEDS: KETOROLAC 30 MG/ML 1ML VIAL IV PRN ×2 (01:41→08:15)
[2023-04-05] MEDS ORDERED: LIDOCAINE 5% (LIDODERM) PATCH TD ONE (02:00)
[2023-04-05] MEDS: LOSARTAN 50MG TABLET PO SCH ×2 (03:07→21:00)
[2023-04-05] MEDS: LEVOTHYROXINE 75MCG TABLET (0.075MG) PO SCH (06:23)
[2023-04-05 06:56] LABS: BASO % 0.3 % (0.0-1.0); EOS % 0.1 % (0.0-3.0); HEMATOCRIT 32.6 % (36.0-47.0); HEMOGLOBIN 10.7 g/dl (12.0-15.5); LYMPH # 0.8 10^3/uL (1.5-5.0); LYMPH % 5.9 % (24.0-44.0); MEAN CORPUSCULAR HEMOGLOBIN 29.4 pg (27.0-33.0); MEAN CORPUSCULAR HGB CONC 32.8 g/dl (32.0-36.5); MEAN CORPUSCULAR VOLUME 89.6 fl (80.0-96.0); MONO # 0.6 10^3/uL (0.0-0.8); MONO % 4.7 % (2.0-8.0); NEUTROPHILS # 11.4 10^3/uL (1.5-8.5); NEUTROPHILS % 88.5 % (36.0-66.0); PLATELET COUNT, AUTOMATED 239 10^3/uL (150-450); RED BLOOD COUNT 3.64 10^6/uL (4.00-5.40); WHITE BLOOD COUNT 12.8 10^3/uL (4.0-10.0)
[2023-04-05 07:18] LABS: BLOOD UREA NITROGEN 20 MG/DL (9-23); CALCIUM LEVEL 8.5 MG/DL (8.3-10.6); CARBON DIOXIDE LEVEL 28 MMOL/L (20-31); CHLORIDE LEVEL 108 MMOL/L (98-107); CREATININE FOR GFR 0.65 MG/DL (0.55-1.30); GLOMERULAR FILTRATION RATE > 60.0 (>39); GLUCOSE, FASTING 124 MG/DL (74-106); POTASSIUM SERUM 4.1 MMOL/L (3.5-5.1); SODIUM LEVEL 140 MMOL/L (136-145)
[2023-04-05 07:19] LABS: IRON (FE) 29 UG/DL (50-170); PERCENT SATURATION 8.8 % (13.2-45.0); TOTAL IRON BINDING CAPACITY 329 UG/DL (250-425)
[2023-04-05 07:21] LABS: FERRITIN 8.6 NG/ML (7.3-270.7); FOLATE 23.79 NG/ML (>5.4)
[2023-04-05] MEDS: CETIRIZINE (ZyrTEC) 10 MG TAB PO SCH (08:59)
[2023-04-05] MEDS: FLUTICASONE PROP 0.05% NASAL SPRAY 16 GM (FLONASE) NARES SCH ×2 (08:59→21:00)
[2023-04-05] MEDS: DOCUSATE SODIUM 100MG CAPSULE PO SCH ×2 (09:00→20:28)
[2023-04-05] MEDS: MULTIVITAMINS/MINERALS THERAP 1 TAB PO SCH (09:00)
[2023-04-05] MEDS: hydroCHLOROthiazide 12.5 MG CAPSULE PO SCH (09:00)
[2023-04-05] MEDS: ATORVASTATIN 20 MG TAB PO SCH (09:01)
[2023-04-05] MEDS: ACETAMINOPHEN TAB 650MG DOSE (2X325MG) PO PRN (11:00)
[2023-04-05] MEDS ORDERED: fentaNYL 100 MCG/2 ML INJECTION IV PRN ×2 (14:25→16:45)
[2023-04-05] MEDS ORDERED: HYDROMORPHONE HCL 0.5 MG/ 0.5 ML SYRINGE IV PRN (14:25)
[2023-04-05] MEDS ORDERED: fentaNYL 100 MCG/2 ML INJECTION As Ordered ONE ×2 (14:47→16:03)
[2023-04-05] MEDS ORDERED: GLYCOPYRROLATE INJ 0.2 MG/ML 2 ML VIAL As Ordered ONE ×2 (15:02→15:03)
[2023-04-05] MEDS ORDERED: ROCURONIUM BROMIDE 50MG/5ML VIAL As Ordered ONE ×2 (15:04→16:03)
[2023-04-05] MEDS ORDERED: TRANEXAMIC ACID 100 MG/ML 10ML VIAL As Ordered ONE (15:11)
[2023-04-05] MEDS ORDERED: CLINDAMYCIN 900MG/50ML PREMIX BAG As Ordered ONE (15:11)
[2023-04-05] MEDS ORDERED: SUGAMMADEX SODIUM 500 MG/5 ML VIAL (BRIDION) As Ordered ONE (15:17)
[2023-04-05] MEDS ORDERED: LIDOCAINE 2% 100MG/5ML SDV (FOR ANES.) As Ordered ONE (16:03)
[2023-04-05] MEDS ORDERED: propofoL 200 MG/20 ML VIAL As Ordered ONE (16:03)
[2023-04-05] MEDS ORDERED: ePHEDrine SULFATE 25 MG/5 ML(5MG/ML) SYRINGE As Ordered ONE (16:16)
[2023-04-05] MEDS ORDERED: fentaNYL 250 MCG/5 ML INJECTION As Ordered ONE (16:26)
[2023-04-05] MEDS ORDERED: VANCOMYCIN 1000MG/20ML VIAL As Ordered ONE (16:39)
[2023-04-05] MEDS ORDERED: KETOROLAC 60MG 2ML VIAL As Ordered ONE (16:50)
[2023-04-05] MEDS ORDERED: BUPIVACAINE/EPIN 0.5% 30ML VIAL As Ordered ONE (17:25)
[2023-04-05] MEDS ORDERED: LIDOCAINE 1% SDV 30ML VIAL As Ordered ONE (17:25)
[2023-04-05 18:47] LABS: HEMATOCRIT 29.4 % (36.0-47.0); HEMOGLOBIN 9.5 g/dl (12.0-15.5); MEAN CORPUSCULAR HEMOGLOBIN 29.1 pg (27.0-33.0); MEAN CORPUSCULAR HGB CONC 32.3 g/dl (32.0-36.5); MEAN CORPUSCULAR VOLUME 90.2 fl (80.0-96.0); PLATELET COUNT, AUTOMATED 253 10^3/uL (150-450); RED BLOOD COUNT 3.26 10^6/uL (4.00-5.40); WHITE BLOOD COUNT 22.5 10^3/uL (4.0-10.0)
[2023-04-05] MEDS: CLINDAMYCIN 900 MG in IV 1 EA IV SCH (20:29)
[2023-04-06] VITALS: BP 117/60
[2023-04-06 02:02] VITALS: BP 117/58
[2023-04-06] MEDS: LEVOTHYROXINE 75MCG TABLET (0.075MG) PO SCH (06:15)
[2023-04-06] MEDS: ACETAMINOPHEN TAB 650MG DOSE (2X325MG) PO PRN (06:15)
[2023-04-06] MEDS: CLINDAMYCIN 900 MG in IV 1 EA IV SCH ×2 (06:16→14:14)
[2023-04-06 06:41] VITALS: BP 103/66
[2023-04-06] MEDS ORDERED: ENOXAPARIN 40MG/0.4ML SYRINGE (J1650 PER 10MG) SC SCH (09:00)
[2023-04-06] MEDS: MULTIVITAMINS/MINERALS THERAP 1 TAB PO SCH (09:19)
[2023-04-06] MEDS: hydroCHLOROthiazide 12.5 MG CAPSULE PO SCH (09:19)
[2023-04-06] MEDS: CETIRIZINE (ZyrTEC) 10 MG TAB PO SCH (09:19)
[2023-04-06] MEDS: ATORVASTATIN 20 MG TAB PO SCH (09:19)
[2023-04-06] MEDS: DOCUSATE SODIUM 100MG CAPSULE PO SCH (09:19)
[2023-04-06] MEDS: FLUTICASONE PROP 0.05% NASAL SPRAY 16 GM (FLONASE) NARES SCH (09:25)
[2023-04-06 10:00] VITALS: BP 131/93
[2023-04-06] MEDS: traMADol 50 MG TAB PO PRN ×2 (10:02→16:59)
[2023-04-06] MEDS ORDERED: TRAM50TA2 PO (12:30)
[2023-04-06] MEDS ORDERED: LOVE1INJ SC (12:36)
[2023-04-06 14:00] VITALS: BP 126/82
== END 2023-04-06 18:40 | DRG 482 ==
LOC: M ED 22:37 → EDBD 22:37 → M ED INP 04-05 00:29 → ENRESERV 04-05 04:14 → M MS5PR 04-05 05:00
PROVIDERS: ADMIT Internal Medicine; ATTEND Internal Medicine
PROC: 0QS606Z Reposition Right Upper Femur with Intramedullary Internal Fixation Device, Open Approach (ICD-10-PCS; principal; 2023-04-05 14:00)
DX: S72.141A Displaced intertrochanteric fracture of right femur, initial encounter for closed fracture (principal); Y93.H2 Activity, gardening and landscaping; Y92.017 Garden or yard in single-family (private) house as the place of occurrence of the external cause; Y99.8 Other external cause status; W18.30XA Fall on same level, unspecified, initial encounter; I10 Essential (primary) hypertension; G47.33 Obstructive sleep apnea (adult) (pediatric); E03.9 Hypothyroidism, unspecified; J30.2 Other seasonal allergic rhinitis; Z79.890 Hormone replacement therapy; Z79.899 Other long term (current) drug therapy; M16.11 Unilateral primary osteoarthritis, right hip; D64.9 Anemia, unspecified; H91.93 Unspecified hearing loss, bilateral; Z97.4 Presence of external hearing-aid; Z96.653 Presence of artificial knee joint, bilateral; Z85.848 Personal history of malignant neoplasm of other parts of nervous tissue; Z88.0 Allergy status to penicillin; Z88.5 Allergy status to narcotic agent

== ENCOUNTER 2023-04-06 11:27 | Inpatient (IN) | payer MEDICARE, OTHER ==
[~2023-04-06] VITALS: Ht 167.6 cm; Wt 95.5 kg
[~2023-04-06 11:27] MED LIST changes: +ACET-683 PO; +AMLO1TAB24 PO; +ATOR1TAB21 PO; +ERGO500029 PO; +IBUP80TA PO; +LEVO75TA4 PO; +LOSA100T46 PO; +THERTAB52 PO
[2023-04-06] MEDS ORDERED: TRAM50TA2 PO (12:30)
[2023-04-06] MEDS ORDERED: LOVE1INJ SC (12:36)
[2023-04-06] MEDS ORDERED: HOME MED LIST COMPLETE! XX SCH (13:45)
[2023-04-06] MEDS ORDERED: BISACODYL 10MG SUPP PR PRN (16:15)
[2023-04-06] MEDS ORDERED: ONDANSETRON 4MG TAB PO PRN (16:15)
[2023-04-06 19:00] VITALS: BP 121/56; TEMP 97.8; O2SAT 91
[2023-04-06 20:00] VITALS: BP 121/56; TEMP 98.9; O2SAT 98
[2023-04-06] MEDS: traMADol 50 MG TAB PO PRN (20:34)
[2023-04-06] MEDS: amLODIPine 5 MG TAB PO SCH (20:34)
[2023-04-06] MEDS: ACETAMINOPHEN 500 MG TAB PO SCH (20:35)
[2023-04-06] MEDS: FLUTICASONE PROP 0.05% NASAL SPRAY 16 GM (FLONASE) NARES SCH (20:35)
[2023-04-06] MEDS: LOSARTAN 50MG TABLET PO SCH (20:35)
[2023-04-06] MEDS: SENNA 8.6 MG TAB (SENOKOT) PO SCH (21:00)
[2023-04-06] MEDS: DOCUSATE SODIUM 100MG CAPSULE PO SCH (21:00)
[2023-04-06] MEDS: REMEDY PHYTOPLEX Z-GUARD PASTE 113GM TUBE (FROM STOREROOM PRODUCT) TOP SCH (21:16)
[2023-04-07] VITALS (11 sets, daily range): BP systolic 105–140; BP diastolic 53–62; TEMP 98.7–99.2; O2SAT 94–99
[2023-04-07] MEDS: LEVOTHYROXINE 75MCG TABLET (0.075MG) PO SCH (05:58)
[2023-04-07 06:24] LABS: BASO % 0.3 % (0.0-1.0); EOS # 0.1 10^3/uL (0.0-0.5); EOS % 1.4 % (0.0-3.0); LYMPH # 1.4 10^3/uL (1.5-5.0); LYMPH % 13.3 % (24.0-44.0); MEAN CORPUSCULAR HEMOGLOBIN 29.5 pg (27.0-33.0); MEAN CORPUSCULAR HGB CONC 32.7 g/dl (32.0-36.5); MEAN CORPUSCULAR VOLUME 90.3 fl (80.0-96.0); MONO # 0.8 10^3/uL (0.0-0.8); MONO % 8.2 % (2.0-8.0); NEUTROPHILS # 7.8 10^3/uL (1.5-8.5); NEUTROPHILS % 76.3 % (36.0-66.0); PLATELET COUNT, AUTOMATED 192 10^3/uL (150-450); RED BLOOD COUNT 2.27 10^6/uL (4.00-5.40); WHITE BLOOD COUNT 10.2 10^3/uL (4.0-10.0)
[2023-04-07 06:32] LABS: HEMATOCRIT 20.5 % (36.0-47.0); HEMOGLOBIN 6.7 g/dl (12.0-15.5)
[2023-04-07 06:49] LABS: ALBUMIN 2.7 G/DL (3.2-5.2); ALKALINE PHOSPHATASE 64 U/L (46-116); ALT/SGPT 19 U/L (7.0-40); AST/SGOT 19 U/L (<34); BILIRUBIN,TOTAL 0.6 MG/DL (0.3-1.2); BLOOD UREA NITROGEN 27 MG/DL (9-23); CALCIUM LEVEL 8.1 MG/DL (8.3-10.6); CARBON DIOXIDE LEVEL 28 MMOL/L (20-31); CHLORIDE LEVEL 105 MMOL/L (98-107); CREATININE FOR GFR 0.78 MG/DL (0.55-1.30); GLOMERULAR FILTRATION RATE > 60.0 (>39); GLUCOSE, FASTING 123 MG/DL (74-106); POTASSIUM SERUM 4.1 MMOL/L (3.5-5.1); SODIUM LEVEL 138 MMOL/L (136-145); TOTAL PROTEIN 4.8 G/DL (5.7-8.2)
[2023-04-07] MEDS ORDERED: ACETAMINOPHEN TAB 650MG DOSE (2X325MG) PO ONE (07:35)
[2023-04-07] MEDS ORDERED: diphenhydrAMINE 25MG CAP PO ONE (07:35)
[2023-04-07 08:20] LABS: MEAN CORPUSCULAR HEMOGLOBIN 29.3 pg (27.0-33.0); MEAN CORPUSCULAR HGB CONC 32.5 g/dl (32.0-36.5); PLATELET COUNT, AUTOMATED 175 10^3/uL (150-450); RED BLOOD COUNT 2.29 10^6/uL (4.00-5.40); WHITE BLOOD COUNT 11.8 10^3/uL (4.0-10.0)
[2023-04-07 08:24] LABS: HEMATOCRIT 20.6 % (36.0-47.0)
[2023-04-07 08:25] LABS: HEMOGLOBIN 6.7 g/dl (12.0-15.5)
[2023-04-07] MEDS: CETIRIZINE (ZyrTEC) 10 MG TAB PO SCH (08:31)
[2023-04-07] MEDS: ENOXAPARIN 40MG/0.4ML SYRINGE (J1650 PER 10MG) SC SCH (08:31)
[2023-04-07] MEDS: traMADol 50 MG TAB PO PRN ×2 (08:32→16:41)
[2023-04-07] MEDS: ATORVASTATIN 20 MG TAB PO SCH (08:32)
[2023-04-07] MEDS: ACETAMINOPHEN 500 MG TAB PO SCH ×3 (08:32→20:17)
[2023-04-07] MEDS: MULTIVITAMINS/MINERALS THERAP 1 TAB PO SCH (08:32)
[2023-04-07] MEDS: PANTOPRAZOLE 40MG TAB (PROTONIX) PO SCH (08:32)
[2023-04-07] MEDS: REMEDY PHYTOPLEX Z-GUARD PASTE 113GM TUBE (FROM STOREROOM PRODUCT) TOP SCH ×3 (08:33→21:00)
[2023-04-07] MEDS: DOCUSATE SODIUM 100MG CAPSULE PO SCH ×2 (08:33→21:00)
[2023-04-07] MEDS: FLUTICASONE PROP 0.05% NASAL SPRAY 16 GM (FLONASE) NARES SCH ×2 (08:33→21:00)
[2023-04-07] MEDS: hydroCHLOROthiazide 12.5 MG CAPSULE PO SCH (08:33)
[2023-04-07] MEDS ORDERED: FUROSEMIDE 20MG/2ML VIAL IV ONE (17:05)
[2023-04-07] MEDS: LOSARTAN 50MG TABLET PO SCH (20:17)
[2023-04-07] MEDS: amLODIPine 5 MG TAB PO SCH (20:18)
[2023-04-07] MEDS: SENNA 8.6 MG TAB (SENOKOT) PO SCH (21:00)
[2023-04-07] MEDS ORDERED: traMADol 50 MG TAB PO PRN (21:00)
[2023-04-07 22:06] LABS: HEMATOCRIT 25.4 % (36.0-47.0); HEMOGLOBIN 8.5 g/dl (12.0-15.5)
[2023-04-08] MEDS: LEVOTHYROXINE 75MCG TABLET (0.075MG) PO SCH (05:21)
[2023-04-08 05:31] LABS: BASO # 0.1 10^3/uL (0.0-0.2); BASO % 0.6 % (0.0-1.0); EOS # 0.3 10^3/uL (0.0-0.5); EOS % 3.8 % (0.0-3.0); HEMOGLOBIN 8.9 g/dl (12.0-15.5); LYMPH # 1.1 10^3/uL (1.5-5.0); LYMPH % 12.2 % (24.0-44.0); MEAN CORPUSCULAR HEMOGLOBIN 29.7 pg (27.0-33.0); MONO # 0.7 10^3/uL (0.0-0.8); MONO % 7.4 % (2.0-8.0); NEUTROPHILS # 6.7 10^3/uL (1.5-8.5); NEUTROPHILS % 75.7 % (36.0-66.0); PLATELET COUNT, AUTOMATED 180 10^3/uL (150-450); WHITE BLOOD COUNT 8.8 10^3/uL (4.0-10.0)
[2023-04-08 06:00] VITALS: BP 130/60; TEMP 98.6; O2SAT 97
[2023-04-08] MEDS: traMADol 50 MG TAB PO SCH ×2 (06:47→11:00)
[2023-04-08] MEDS: hydroCHLOROthiazide 12.5 MG CAPSULE PO SCH (08:43)
[2023-04-08] MEDS: MULTIVITAMINS/MINERALS THERAP 1 TAB PO SCH (08:43)
[2023-04-08] MEDS: DOCUSATE SODIUM 100MG CAPSULE PO SCH ×2 (08:43→20:44)
[2023-04-08] MEDS: PANTOPRAZOLE 40MG TAB (PROTONIX) PO SCH (08:43)
[2023-04-08] MEDS: FLUTICASONE PROP 0.05% NASAL SPRAY 16 GM (FLONASE) NARES SCH ×2 (08:44→20:46)
[2023-04-08] MEDS: ACETAMINOPHEN 500 MG TAB PO SCH ×3 (08:44→20:46)
[2023-04-08] MEDS: ENOXAPARIN 40MG/0.4ML SYRINGE (J1650 PER 10MG) SC SCH (08:44)
[2023-04-08] MEDS: ATORVASTATIN 20 MG TAB PO SCH (08:44)
[2023-04-08] MEDS: REMEDY PHYTOPLEX Z-GUARD PASTE 113GM TUBE (FROM STOREROOM PRODUCT) TOP SCH ×3 (08:44→20:46)
[2023-04-08] MEDS: CETIRIZINE (ZyrTEC) 10 MG TAB PO SCH (08:44)
[2023-04-08 12:04] VITALS: O2SAT 93
[2023-04-08 14:00] VITALS: BP 127/60; TEMP 98.4; O2SAT 98
[2023-04-08 20:00] VITALS: BP 117/58; TEMP 99.5; O2SAT 96
[2023-04-08] MEDS: SENNA 8.6 MG TAB (SENOKOT) PO SCH (20:44)
[2023-04-08] MEDS: amLODIPine 5 MG TAB PO SCH (20:45)
[2023-04-08] MEDS: LOSARTAN 50MG TABLET PO SCH (20:46)
[2023-04-09 00:51] VITALS: O2SAT 77; O2SAT 92
[2023-04-09] MEDS: LEVOTHYROXINE 75MCG TABLET (0.075MG) PO SCH (05:38)
[2023-04-09 06:00] VITALS: BP 128/59; TEMP 99; O2SAT 97
[2023-04-09] MEDS: traMADol 50 MG TAB PO SCH ×2 (06:25→12:28)
[2023-04-09] MEDS: ACETAMINOPHEN 500 MG TAB PO SCH ×3 (07:07→22:15)
[2023-04-09] MEDS: hydroCHLOROthiazide 12.5 MG CAPSULE PO SCH (07:07)
[2023-04-09] MEDS: PANTOPRAZOLE 40MG TAB (PROTONIX) PO SCH (07:08)
[2023-04-09] MEDS: ATORVASTATIN 20 MG TAB PO SCH (07:08)
[2023-04-09] MEDS: CETIRIZINE (ZyrTEC) 10 MG TAB PO SCH (07:08)
[2023-04-09] MEDS: REMEDY PHYTOPLEX Z-GUARD PASTE 113GM TUBE (FROM STOREROOM PRODUCT) TOP SCH ×3 (07:08→22:20)
[2023-04-09] MEDS: MULTIVITAMINS/MINERALS THERAP 1 TAB PO SCH (07:08)
[2023-04-09] MEDS: FLUTICASONE PROP 0.05% NASAL SPRAY 16 GM (FLONASE) NARES SCH ×2 (07:08→21:00)
[2023-04-09] MEDS: ENOXAPARIN 40MG/0.4ML SYRINGE (J1650 PER 10MG) SC SCH (07:08)
[2023-04-09] MEDS: DOCUSATE SODIUM 100MG CAPSULE PO SCH ×2 (07:42→21:00)
[2023-04-09] MEDS: LORATADINE 10 MG TAB PO SCH (09:00)
[2023-04-09] MEDS ORDERED: PILL CUTTER 1 EACH XX PRN (11:00)
[2023-04-09 11:14] LABS: BASO % 0.3 % (0.0-1.0); EOS # 0.1 10^3/uL (0.0-0.5); EOS % 0.6 % (0.0-3.0); HEMATOCRIT 30.4 % (36.0-47.0); HEMOGLOBIN 9.8 g/dl (12.0-15.5); LYMPH # 0.5 10^3/uL (1.5-5.0); LYMPH % 4.1 % (24.0-44.0); MEAN CORPUSCULAR HEMOGLOBIN 29.3 pg (27.0-33.0); MEAN CORPUSCULAR HGB CONC 32.2 g/dl (32.0-36.5); MEAN CORPUSCULAR VOLUME 90.7 fl (80.0-96.0); MONO # 0.5 10^3/uL (0.0-0.8); MONO % 4.3 % (2.0-8.0); NEUTROPHILS # 10.7 10^3/uL (1.5-8.5); NEUTROPHILS % 90.2 % (36.0-66.0); PLATELET COUNT, AUTOMATED 267 10^3/uL (150-450); RED BLOOD COUNT 3.35 10^6/uL (4.00-5.40); WHITE BLOOD COUNT 11.8 10^3/uL (4.0-10.0)
[2023-04-09 11:56] LABS: BLOOD UREA NITROGEN 18 MG/DL (9-23); CALCIUM LEVEL 7.9 MG/DL (8.3-10.6); CARBON DIOXIDE LEVEL 30 MMOL/L (20-31); CHLORIDE LEVEL 102 MMOL/L (98-107); CREATININE FOR GFR 0.59 MG/DL (0.55-1.30); GLOMERULAR FILTRATION RATE > 60.0 (>39); GLUCOSE, FASTING 121 MG/DL (74-106); SODIUM LEVEL 137 MMOL/L (136-145)
[2023-04-09 14:00] VITALS: BP 122/56; TEMP 98; O2SAT 98
[2023-04-09] MEDS: LACTOBACILLUS ACIDOPHILUS CAP (BACID) PO SCH (17:47)
[2023-04-09] MEDS: LevoFLOXacin 250 MG TABLET PO SCH (17:47)
[2023-04-09 20:00] VITALS: BP 154/67; TEMP 98; O2SAT 95
[2023-04-09] MEDS: SENNA 8.6 MG TAB (SENOKOT) PO SCH (21:00)
[2023-04-09 22:11] VITALS: BP 167/69
[2023-04-09] MEDS: amLODIPine 5 MG TAB PO SCH (22:15)
[2023-04-09] MEDS: LOSARTAN 50MG TABLET PO SCH (22:17)
[2023-04-10 05:48] VITALS: BP 142/63; TEMP 98.9; O2SAT 92
[2023-04-10] MEDS: traMADol 50 MG TAB PO SCH ×2 (06:01→11:07)
[2023-04-10] MEDS: LEVOTHYROXINE 75MCG TABLET (0.075MG) PO SCH (06:02)
[2023-04-10] MEDS: LevoFLOXacin 250 MG TABLET PO SCH (06:02)
[2023-04-10 07:19] LABS: BASO % 0.5 % (0.0-1.0); EOS # 0.4 10^3/uL (0.0-0.5); EOS % 4.3 % (0.0-3.0); HEMATOCRIT 28.4 % (36.0-47.0); HEMOGLOBIN 9.3 g/dl (12.0-15.5); LYMPH # 0.8 10^3/uL (1.5-5.0); LYMPH % 8.9 % (24.0-44.0); MEAN CORPUSCULAR HEMOGLOBIN 29.7 pg (27.0-33.0); MEAN CORPUSCULAR HGB CONC 32.7 g/dl (32.0-36.5); MEAN CORPUSCULAR VOLUME 90.7 fl (80.0-96.0); MONO # 0.8 10^3/uL (0.0-0.8); MONO % 8.5 % (2.0-8.0); NEUTROPHILS # 6.8 10^3/uL (1.5-8.5); NEUTROPHILS % 76.9 % (36.0-66.0); PLATELET COUNT, AUTOMATED 258 10^3/uL (150-450); RED BLOOD COUNT 3.13 10^6/uL (4.00-5.40); WHITE BLOOD COUNT 8.8 10^3/uL (4.0-10.0)
[2023-04-10] MEDS: ACETAMINOPHEN 500 MG TAB PO SCH ×3 (07:25→20:35)
[2023-04-10] MEDS: ATORVASTATIN 20 MG TAB PO SCH (07:25)
[2023-04-10] MEDS: PANTOPRAZOLE 40MG TAB (PROTONIX) PO SCH (07:25)
[2023-04-10] MEDS: LACTOBACILLUS ACIDOPHILUS CAP (BACID) PO SCH ×2 (07:25→18:55)
[2023-04-10] MEDS: LORATADINE 10 MG TAB PO SCH (07:25)
[2023-04-10] MEDS: hydroCHLOROthiazide 12.5 MG CAPSULE PO SCH (07:26)
[2023-04-10] MEDS: DOCUSATE SODIUM 100MG CAPSULE PO SCH ×2 (07:26→20:35)
[2023-04-10] MEDS: FLUTICASONE PROP 0.05% NASAL SPRAY 16 GM (FLONASE) NARES SCH ×2 (07:26→20:37)
[2023-04-10] MEDS: MULTIVITAMINS/MINERALS THERAP 1 TAB PO SCH (07:26)
[2023-04-10] MEDS: REMEDY PHYTOPLEX Z-GUARD PASTE 113GM TUBE (FROM STOREROOM PRODUCT) TOP SCH ×3 (07:26→20:37)
[2023-04-10] MEDS: ENOXAPARIN 40MG/0.4ML SYRINGE (J1650 PER 10MG) SC SCH (07:26)
[2023-04-10 07:45] LABS: BLOOD UREA NITROGEN 16 MG/DL (9-23); CALCIUM LEVEL 8.3 MG/DL (8.3-10.6); CARBON DIOXIDE LEVEL 29 MMOL/L (20-31); CHLORIDE LEVEL 104 MMOL/L (98-107); CREATININE FOR GFR 0.62 MG/DL (0.55-1.30); GLOMERULAR FILTRATION RATE > 60.0 (>39); GLUCOSE, FASTING 103 MG/DL (74-106); POTASSIUM SERUM 3.7 MMOL/L (3.5-5.1); SODIUM LEVEL 139 MMOL/L (136-145)
[2023-04-10] MEDS: amLODIPine 5 MG TAB PO SCH ×2 (11:06→20:35)
[2023-04-10 14:00] VITALS: BP 133/61; TEMP 98; O2SAT 98
[2023-04-10 19:41] VITALS: BP 129/60; TEMP 98.6; O2SAT 97
[2023-04-10] MEDS: SENNA 8.6 MG TAB (SENOKOT) PO SCH (20:34)
[2023-04-10] MEDS: LOSARTAN 50MG TABLET PO SCH (20:36)
[2023-04-11 05:20] VITALS: BP 139/63; TEMP 98.4; O2SAT 98
[2023-04-11] MEDS: traMADol 50 MG TAB PO SCH ×2 (06:19→12:20)
[2023-04-11] MEDS: LEVOTHYROXINE 75MCG TABLET (0.075MG) PO SCH (06:19)
[2023-04-11] MEDS: LevoFLOXacin 250 MG TABLET PO SCH (06:19)
[2023-04-11] MEDS: PANTOPRAZOLE 40MG TAB (PROTONIX) PO SCH (08:53)
[2023-04-11] MEDS: LORATADINE 10 MG TAB PO SCH (08:53)
[2023-04-11] MEDS: ACETAMINOPHEN 500 MG TAB PO SCH ×3 (08:53→20:29)
[2023-04-11] MEDS: MULTIVITAMINS/MINERALS THERAP 1 TAB PO SCH (08:53)
[2023-04-11] MEDS: ATORVASTATIN 20 MG TAB PO SCH (08:53)
[2023-04-11] MEDS: LACTOBACILLUS ACIDOPHILUS CAP (BACID) PO SCH ×2 (08:53→17:50)
[2023-04-11] MEDS: ENOXAPARIN 40MG/0.4ML SYRINGE (J1650 PER 10MG) SC SCH (08:54)
[2023-04-11] MEDS: DOCUSATE SODIUM 100MG CAPSULE PO SCH ×2 (08:54→20:28)
[2023-04-11] MEDS: hydroCHLOROthiazide 12.5 MG CAPSULE PO SCH (08:54)
[2023-04-11] MEDS: amLODIPine 5 MG TAB PO SCH ×2 (08:55→20:29)
[2023-04-11] MEDS: FLUTICASONE PROP 0.05% NASAL SPRAY 16 GM (FLONASE) NARES SCH ×2 (08:55→20:28)
[2023-04-11] MEDS: REMEDY PHYTOPLEX Z-GUARD PASTE 113GM TUBE (FROM STOREROOM PRODUCT) TOP SCH ×3 (08:55→20:28)
[2023-04-11 14:00] VITALS: BP 147/67; TEMP 98.7; O2SAT 97
[2023-04-11 20:00] VITALS: BP 122/66; TEMP 98.9; O2SAT 98
[2023-04-11] MEDS: SENNA 8.6 MG TAB (SENOKOT) PO SCH (20:28)
[2023-04-11] MEDS: traMADol 50 MG TAB PO PRN (20:30)
[2023-04-11] MEDS: LOSARTAN 50MG TABLET PO SCH (20:31)
[2023-04-12] VITALS: O2SAT 90
[2023-04-12] MEDS: LEVOTHYROXINE 75MCG TABLET (0.075MG) PO SCH (05:11)
[2023-04-12 06:00] VITALS: BP 132/82; TEMP 97.1; O2SAT 97
[2023-04-12] MEDS: traMADol 50 MG TAB PO SCH ×2 (06:28→12:01)
[2023-04-12] MEDS: PANTOPRAZOLE 40MG TAB (PROTONIX) PO SCH (08:08)
[2023-04-12] MEDS: LORATADINE 10 MG TAB PO SCH (08:08)
[2023-04-12] MEDS: MULTIVITAMINS/MINERALS THERAP 1 TAB PO SCH (08:09)
[2023-04-12] MEDS: ATORVASTATIN 20 MG TAB PO SCH (08:09)
[2023-04-12] MEDS: LACTOBACILLUS ACIDOPHILUS CAP (BACID) PO SCH ×2 (08:09→17:29)
[2023-04-12] MEDS: hydroCHLOROthiazide 12.5 MG CAPSULE PO SCH (08:09)
[2023-04-12] MEDS: REMEDY PHYTOPLEX Z-GUARD PASTE 113GM TUBE (FROM STOREROOM PRODUCT) TOP SCH ×3 (08:10→21:00)
[2023-04-12] MEDS: ENOXAPARIN 40MG/0.4ML SYRINGE (J1650 PER 10MG) SC SCH (08:10)
[2023-04-12] MEDS: ACETAMINOPHEN 500 MG TAB PO SCH ×3 (08:10→20:40)
[2023-04-12] MEDS: FLUTICASONE PROP 0.05% NASAL SPRAY 16 GM (FLONASE) NARES SCH ×2 (08:10→21:00)
[2023-04-12] MEDS: amLODIPine 5 MG TAB PO SCH ×2 (08:11→20:40)
[2023-04-12] MEDS: DOCUSATE SODIUM 100MG CAPSULE PO SCH ×2 (08:11→21:00)
[2023-04-12 14:00] VITALS: BP 130/60; TEMP 98; O2SAT 98
[2023-04-12 20:00] VITALS: BP 131/59; TEMP 98.8; O2SAT 99
[2023-04-12] MEDS: LOSARTAN 50MG TABLET PO SCH (20:40)
[2023-04-12] MEDS: traMADol 50 MG TAB PO PRN (20:41)
[2023-04-12] MEDS: SENNA 8.6 MG TAB (SENOKOT) PO SCH (21:00)
[2023-04-13] MEDS: LEVOTHYROXINE 75MCG TABLET (0.075MG) PO SCH (05:27)
[2023-04-13 06:00] VITALS: BP 136/63; TEMP 98.6; O2SAT 94
[2023-04-13] MEDS: traMADol 50 MG TAB PO SCH ×2 (06:24→11:21)
[2023-04-13] MEDS: DOCUSATE SODIUM 100MG CAPSULE PO SCH ×2 (07:05→20:25)
[2023-04-13] MEDS: ENOXAPARIN 40MG/0.4ML SYRINGE (J1650 PER 10MG) SC SCH (07:15)
[2023-04-13] MEDS: hydroCHLOROthiazide 12.5 MG CAPSULE PO SCH (07:15)
[2023-04-13] MEDS: MULTIVITAMINS/MINERALS THERAP 1 TAB PO SCH (07:15)
[2023-04-13] MEDS: LACTOBACILLUS ACIDOPHILUS CAP (BACID) PO SCH ×2 (07:16→17:07)
[2023-04-13] MEDS: LORATADINE 10 MG TAB PO SCH (07:16)
[2023-04-13] MEDS: ACETAMINOPHEN 500 MG TAB PO SCH ×3 (07:16→20:26)
[2023-04-13] MEDS: amLODIPine 5 MG TAB PO SCH ×2 (07:17→20:26)
[2023-04-13] MEDS: PANTOPRAZOLE 40MG TAB (PROTONIX) PO SCH (07:17)
[2023-04-13] MEDS: FLUTICASONE PROP 0.05% NASAL SPRAY 16 GM (FLONASE) NARES SCH ×2 (07:17→21:00)
[2023-04-13] MEDS: ATORVASTATIN 20 MG TAB PO SCH (07:17)
[2023-04-13] MEDS: REMEDY PHYTOPLEX Z-GUARD PASTE 113GM TUBE (FROM STOREROOM PRODUCT) TOP SCH ×3 (07:17→21:00)
[2023-04-13 14:00] VITALS: BP 141/64; TEMP 97.8; O2SAT 97
[2023-04-13 20:00] VITALS: BP 127/60; TEMP 99.2; O2SAT 99
[2023-04-13] MEDS: SENNA 8.6 MG TAB (SENOKOT) PO SCH (20:25)
[2023-04-13] MEDS: LOSARTAN 50MG TABLET PO SCH (20:25)
[2023-04-13] MEDS: traMADol 50 MG TAB PO PRN (20:26)
[2023-04-14] MEDS: LEVOTHYROXINE 75MCG TABLET (0.075MG) PO SCH (05:43)
[2023-04-14 06:00] VITALS: BP 133/75; TEMP 98.7; O2SAT 95
[2023-04-14] MEDS: traMADol 50 MG TAB PO SCH ×2 (06:43→11:12)
[2023-04-14] MEDS: ENOXAPARIN 40MG/0.4ML SYRINGE (J1650 PER 10MG) SC SCH (07:45)
[2023-04-14] MEDS: ACETAMINOPHEN 500 MG TAB PO SCH ×3 (07:46→20:44)
[2023-04-14] MEDS: PANTOPRAZOLE 40MG TAB (PROTONIX) PO SCH (07:46)
[2023-04-14] MEDS: LACTOBACILLUS ACIDOPHILUS CAP (BACID) PO SCH ×2 (07:46→17:21)
[2023-04-14] MEDS: LORATADINE 10 MG TAB PO SCH (07:46)
[2023-04-14] MEDS: amLODIPine 5 MG TAB PO SCH ×2 (07:46→20:44)
[2023-04-14] MEDS: ATORVASTATIN 20 MG TAB PO SCH (07:46)
[2023-04-14] MEDS: MULTIVITAMINS/MINERALS THERAP 1 TAB PO SCH (07:46)
[2023-04-14] MEDS: hydroCHLOROthiazide 12.5 MG CAPSULE PO SCH (07:47)
[2023-04-14] MEDS: FLUTICASONE PROP 0.05% NASAL SPRAY 16 GM (FLONASE) NARES SCH ×2 (07:47→21:00)
[2023-04-14] MEDS: DOCUSATE SODIUM 100MG CAPSULE PO SCH ×2 (07:48→21:00)
[2023-04-14] MEDS: REMEDY PHYTOPLEX Z-GUARD PASTE 113GM TUBE (FROM STOREROOM PRODUCT) TOP SCH ×3 (07:49→21:00)
[2023-04-14 12:21] LABS: BASO # 0.1 10^3/uL (0.0-0.2); BASO % 0.6 % (0.0-1.0); EOS # 0.3 10^3/uL (0.0-0.5); EOS % 2.3 % (0.0-3.0); HEMATOCRIT 31.8 % (36.0-47.0); HEMOGLOBIN 10.3 g/dl (12.0-15.5); LYMPH # 1.1 10^3/uL (1.5-5.0); LYMPH % 9.7 % (24.0-44.0); MEAN CORPUSCULAR HEMOGLOBIN 30.2 pg (27.0-33.0); MEAN CORPUSCULAR HGB CONC 32.4 g/dl (32.0-36.5); MEAN CORPUSCULAR VOLUME 93.3 fl (80.0-96.0); MONO # 0.8 10^3/uL (0.0-0.8); NEUTROPHILS # 8.6 10^3/uL (1.5-8.5); NEUTROPHILS % 78.9 % (36.0-66.0); PLATELET COUNT, AUTOMATED 389 10^3/uL (150-450); RED BLOOD COUNT 3.41 10^6/uL (4.00-5.40); WHITE BLOOD COUNT 10.9 10^3/uL (4.0-10.0)
[2023-04-14 12:43] LABS: BLOOD UREA NITROGEN 21 MG/DL (9-23); CALCIUM LEVEL 8.5 MG/DL (8.3-10.6); CARBON DIOXIDE LEVEL 28 MMOL/L (20-31); CHLORIDE LEVEL 105 MMOL/L (98-107); CREATININE FOR GFR 0.64 MG/DL (0.55-1.30); GLOMERULAR FILTRATION RATE > 60.0 (>39); GLUCOSE, FASTING 147 MG/DL (74-106); POTASSIUM SERUM 3.8 MMOL/L (3.5-5.1); SODIUM LEVEL 140 MMOL/L (136-145)
[2023-04-14 14:00] VITALS: BP 112/55; TEMP 97.8; O2SAT 97
[2023-04-14 20:00] VITALS: BP 136/60; TEMP 98.3; O2SAT 95
[2023-04-14] MEDS: traMADol 50 MG TAB PO PRN (20:43)
[2023-04-14] MEDS: LOSARTAN 50MG TABLET PO SCH (20:44)
[2023-04-14] MEDS: SENNA 8.6 MG TAB (SENOKOT) PO SCH (21:00)
[2023-04-15] MEDS: LEVOTHYROXINE 75MCG TABLET (0.075MG) PO SCH (05:45)
[2023-04-15 06:00] VITALS: BP 139/64; TEMP 98.5; O2SAT 95
[2023-04-15] MEDS: traMADol 50 MG TAB PO SCH ×2 (06:25→12:25)
[2023-04-15] MEDS: FLUTICASONE PROP 0.05% NASAL SPRAY 16 GM (FLONASE) NARES SCH ×2 (09:00→20:35)
[2023-04-15] MEDS: REMEDY PHYTOPLEX Z-GUARD PASTE 113GM TUBE (FROM STOREROOM PRODUCT) TOP SCH ×3 (09:00→20:35)
[2023-04-15] MEDS: DOCUSATE SODIUM 100MG CAPSULE PO SCH ×2 (09:00→19:48)
[2023-04-15] MEDS: ATORVASTATIN 20 MG TAB PO SCH (09:10)
[2023-04-15] MEDS: LACTOBACILLUS ACIDOPHILUS CAP (BACID) PO SCH ×2 (09:10→16:46)
[2023-04-15] MEDS: PANTOPRAZOLE 40MG TAB (PROTONIX) PO SCH (09:10)
[2023-04-15] MEDS: ACETAMINOPHEN 500 MG TAB PO SCH ×3 (09:10→20:33)
[2023-04-15] MEDS: LORATADINE 10 MG TAB PO SCH (09:10)
[2023-04-15] MEDS: amLODIPine 5 MG TAB PO SCH ×2 (09:11→20:33)
[2023-04-15] MEDS: hydroCHLOROthiazide 12.5 MG CAPSULE PO SCH (09:11)
[2023-04-15] MEDS: MULTIVITAMINS/MINERALS THERAP 1 TAB PO SCH (09:11)
[2023-04-15] MEDS: ENOXAPARIN 40MG/0.4ML SYRINGE (J1650 PER 10MG) SC SCH (09:12)
[2023-04-15] MEDS: VITAMIN D 50,000 UNITS CAPSULE (ERGOCALCIFEROL 1.25MG) PO SCH (12:24)
[2023-04-15 14:00] VITALS: BP 129/60; TEMP 98.7; O2SAT 98
[2023-04-15 20:30] VITALS: BP 149/69; TEMP 98; O2SAT 96
[2023-04-15] MEDS: LOSARTAN 50MG TABLET PO SCH (20:34)
[2023-04-15] MEDS: SENNA 8.6 MG TAB (SENOKOT) PO SCH (20:34)
[2023-04-16 06:06] VITALS: BP 174/73; TEMP 98.2; O2SAT 95
[2023-04-16 06:46] VITALS: BP 141/63
[2023-04-16] MEDS: LEVOTHYROXINE 75MCG TABLET (0.075MG) PO SCH (07:09)
[2023-04-16] MEDS: traMADol 50 MG TAB PO SCH ×2 (07:10→12:10)
[2023-04-16] MEDS: DOCUSATE SODIUM 100MG CAPSULE PO SCH ×2 (09:00→21:00)
[2023-04-16] MEDS: REMEDY PHYTOPLEX Z-GUARD PASTE 113GM TUBE (FROM STOREROOM PRODUCT) TOP SCH ×3 (09:00→21:00)
[2023-04-16] MEDS: FLUTICASONE PROP 0.05% NASAL SPRAY 16 GM (FLONASE) NARES SCH ×2 (09:00→21:00)
[2023-04-16] MEDS: MULTIVITAMINS/MINERALS THERAP 1 TAB PO SCH (09:29)
[2023-04-16] MEDS: LORATADINE 10 MG TAB PO SCH (09:29)
[2023-04-16] MEDS: PANTOPRAZOLE 40MG TAB (PROTONIX) PO SCH (09:29)
[2023-04-16] MEDS: ATORVASTATIN 20 MG TAB PO SCH (09:29)
[2023-04-16] MEDS: ACETAMINOPHEN 500 MG TAB PO SCH ×3 (09:29→22:33)
[2023-04-16] MEDS: LACTOBACILLUS ACIDOPHILUS CAP (BACID) PO SCH ×2 (09:29→18:14)
[2023-04-16] MEDS: ENOXAPARIN 40MG/0.4ML SYRINGE (J1650 PER 10MG) SC SCH (09:30)
[2023-04-16] MEDS: amLODIPine 5 MG TAB PO SCH ×2 (09:30→22:32)
[2023-04-16] MEDS: hydroCHLOROthiazide 12.5 MG CAPSULE PO SCH (09:30)
[2023-04-16 14:00] VITALS: BP 137/63; TEMP 98.4; O2SAT 96
[2023-04-16] MEDS: SENNA 8.6 MG TAB (SENOKOT) PO SCH (21:00)
[2023-04-16 22:24] VITALS: BP 148/65; TEMP 98.8; O2SAT 94
[2023-04-16] MEDS: LOSARTAN 50MG TABLET PO SCH (22:32)
[2023-04-17 06:01] VITALS: BP 140/66; TEMP 98.3; O2SAT 95
[2023-04-17] MEDS: LEVOTHYROXINE 75MCG TABLET (0.075MG) PO SCH (06:11)
[2023-04-17] MEDS: traMADol 50 MG TAB PO SCH ×2 (06:12→11:32)
[2023-04-17 06:54] LABS: BASO # 0.1 10^3/uL (0.0-0.2); BASO % 0.9 % (0.0-1.0); EOS # 0.4 10^3/uL (0.0-0.5); EOS % 4.4 % (0.0-3.0); HEMATOCRIT 31.2 % (36.0-47.0); LYMPH % 12.7 % (24.0-44.0); MEAN CORPUSCULAR HEMOGLOBIN 29.6 pg (27.0-33.0); MEAN CORPUSCULAR HGB CONC 32.1 g/dl (32.0-36.5); MEAN CORPUSCULAR VOLUME 92.3 fl (80.0-96.0); MONO # 0.7 10^3/uL (0.0-0.8); MONO % 7.9 % (2.0-8.0); NEUTROPHILS % 72.9 % (36.0-66.0); PLATELET COUNT, AUTOMATED 379 10^3/uL (150-450); RED BLOOD COUNT 3.38 10^6/uL (4.00-5.40); WHITE BLOOD COUNT 8.2 10^3/uL (4.0-10.0)
[2023-04-17 07:25] LABS: BLOOD UREA NITROGEN 16 MG/DL (9-23); CALCIUM LEVEL 8.5 MG/DL (8.3-10.6); CARBON DIOXIDE LEVEL 28 MMOL/L (20-31); CHLORIDE LEVEL 106 MMOL/L (98-107); GLOMERULAR FILTRATION RATE > 60.0 (>39); GLUCOSE, FASTING 111 MG/DL (74-106); POTASSIUM SERUM 4.1 MMOL/L (3.5-5.1); SODIUM LEVEL 140 MMOL/L (136-145)
[2023-04-17] MEDS: FLUTICASONE PROP 0.05% NASAL SPRAY 16 GM (FLONASE) NARES SCH ×2 (09:00→20:42)
[2023-04-17] MEDS: DOCUSATE SODIUM 100MG CAPSULE PO SCH ×2 (09:00→20:41)
[2023-04-17] MEDS: ACETAMINOPHEN 500 MG TAB PO SCH ×3 (09:09→20:44)
[2023-04-17] MEDS: ENOXAPARIN 40MG/0.4ML SYRINGE (J1650 PER 10MG) SC SCH (09:09)
[2023-04-17] MEDS: REMEDY PHYTOPLEX Z-GUARD PASTE 113GM TUBE (FROM STOREROOM PRODUCT) TOP SCH ×3 (09:10→20:42)
[2023-04-17] MEDS: PANTOPRAZOLE 40MG TAB (PROTONIX) PO SCH (09:11)
[2023-04-17] MEDS: LORATADINE 10 MG TAB PO SCH (09:11)
[2023-04-17] MEDS: hydroCHLOROthiazide 12.5 MG CAPSULE PO SCH (09:11)
[2023-04-17] MEDS: MULTIVITAMINS/MINERALS THERAP 1 TAB PO SCH (09:11)
[2023-04-17] MEDS: LACTOBACILLUS ACIDOPHILUS CAP (BACID) PO SCH ×2 (09:11→17:38)
[2023-04-17] MEDS: ATORVASTATIN 20 MG TAB PO SCH (09:12)
[2023-04-17] MEDS: amLODIPine 5 MG TAB PO SCH ×2 (09:12→20:44)
[2023-04-17 19:45] VITALS: BP 122/56; TEMP 97.9; O2SAT 96
[2023-04-17] MEDS: SENNA 8.6 MG TAB (SENOKOT) PO SCH (20:41)
[2023-04-17] MEDS: LOSARTAN 50MG TABLET PO SCH (20:43)
[2023-04-18 04:55] VITALS: BP 130/60; TEMP 98.6; O2SAT 96
[2023-04-18] MEDS: traMADol 50 MG TAB PO SCH ×2 (05:17→11:42)
[2023-04-18] MEDS: LEVOTHYROXINE 75MCG TABLET (0.075MG) PO SCH (05:17)
[2023-04-18] MEDS: FLUTICASONE PROP 0.05% NASAL SPRAY 16 GM (FLONASE) NARES SCH ×2 (09:00→19:31)
[2023-04-18] MEDS: DOCUSATE SODIUM 100MG CAPSULE PO SCH ×2 (09:00→19:29)
[2023-04-18] MEDS: REMEDY PHYTOPLEX Z-GUARD PASTE 113GM TUBE (FROM STOREROOM PRODUCT) TOP SCH ×3 (09:00→19:31)
[2023-04-18] MEDS: amLODIPine 5 MG TAB PO SCH ×2 (09:28→19:39)
[2023-04-18] MEDS: hydroCHLOROthiazide 12.5 MG CAPSULE PO SCH (09:28)
[2023-04-18] MEDS: ACETAMINOPHEN 500 MG TAB PO SCH ×3 (09:28→19:40)
[2023-04-18] MEDS: LORATADINE 10 MG TAB PO SCH (09:29)
[2023-04-18] MEDS: LACTOBACILLUS ACIDOPHILUS CAP (BACID) PO SCH ×2 (09:29→17:25)
[2023-04-18] MEDS: MULTIVITAMINS/MINERALS THERAP 1 TAB PO SCH (09:29)
[2023-04-18] MEDS: ATORVASTATIN 20 MG TAB PO SCH (09:29)
[2023-04-18] MEDS: ENOXAPARIN 40MG/0.4ML SYRINGE (J1650 PER 10MG) SC SCH (09:29)
[2023-04-18] MEDS: PANTOPRAZOLE 40MG TAB (PROTONIX) PO SCH (09:29)
[2023-04-18 14:06] VITALS: BP 142/63; TEMP 98.7; O2SAT 97
[2023-04-18 19:12] VITALS: BP 121/64; TEMP 97.7; O2SAT 97
[2023-04-18] MEDS: SENNA 8.6 MG TAB (SENOKOT) PO SCH (19:29)
[2023-04-18] MEDS: LOSARTAN 50MG TABLET PO SCH (19:39)
[2023-04-19 05:28] VITALS: BP 136/65; TEMP 98.3; O2SAT 98
[2023-04-19] MEDS: LEVOTHYROXINE 75MCG TABLET (0.075MG) PO SCH (05:32)
[2023-04-19] MEDS: traMADol 50 MG TAB PO SCH ×2 (07:00→12:00)
[2023-04-19] MEDS: DOCUSATE SODIUM 100MG CAPSULE PO SCH ×2 (09:00→21:00)
[2023-04-19] MEDS: REMEDY PHYTOPLEX Z-GUARD PASTE 113GM TUBE (FROM STOREROOM PRODUCT) TOP SCH ×3 (09:00→21:00)
[2023-04-19] MEDS: hydroCHLOROthiazide 12.5 MG CAPSULE PO SCH (09:54)
[2023-04-19] MEDS: LACTOBACILLUS ACIDOPHILUS CAP (BACID) PO SCH ×2 (09:54→17:42)
[2023-04-19] MEDS: LORATADINE 10 MG TAB PO SCH (09:54)
[2023-04-19] MEDS: MULTIVITAMINS/MINERALS THERAP 1 TAB PO SCH (09:55)
[2023-04-19] MEDS: ACETAMINOPHEN 500 MG TAB PO SCH ×3 (09:55→21:53)
[2023-04-19] MEDS: ATORVASTATIN 20 MG TAB PO SCH (09:55)
[2023-04-19] MEDS: amLODIPine 5 MG TAB PO SCH ×2 (09:55→21:53)
[2023-04-19] MEDS: PANTOPRAZOLE 40MG TAB (PROTONIX) PO SCH (09:55)
[2023-04-19] MEDS: FLUTICASONE PROP 0.05% NASAL SPRAY 16 GM (FLONASE) NARES SCH ×2 (09:56→21:00)
[2023-04-19] MEDS: ENOXAPARIN 40MG/0.4ML SYRINGE (J1650 PER 10MG) SC SCH (09:56)
[2023-04-19 14:00] VITALS: BP 134/65; TEMP 98.4; O2SAT 99
[2023-04-19 20:00] VITALS: BP 133/61; TEMP 98.4; O2SAT 93
[2023-04-19] MEDS: SENNA 8.6 MG TAB (SENOKOT) PO SCH (21:00)
[2023-04-19] MEDS: LOSARTAN 50MG TABLET PO SCH (21:54)
[2023-04-20 06:00] VITALS: BP 136/63; TEMP 98.6; O2SAT 94
[2023-04-20] MEDS: LEVOTHYROXINE 75MCG TABLET (0.075MG) PO SCH (06:17)
[2023-04-20] MEDS: traMADol 50 MG TAB PO SCH ×2 (06:19→11:45)
[2023-04-20] MEDS: DOCUSATE SODIUM 100MG CAPSULE PO SCH ×2 (09:00→20:09)
[2023-04-20] MEDS: REMEDY PHYTOPLEX Z-GUARD PASTE 113GM TUBE (FROM STOREROOM PRODUCT) TOP SCH ×3 (09:00→20:09)
[2023-04-20] MEDS: FLUTICASONE PROP 0.05% NASAL SPRAY 16 GM (FLONASE) NARES SCH ×2 (09:00→20:09)
[2023-04-20] MEDS: ATORVASTATIN 20 MG TAB PO SCH (09:27)
[2023-04-20] MEDS: hydroCHLOROthiazide 12.5 MG CAPSULE PO SCH (09:27)
[2023-04-20] MEDS: ACETAMINOPHEN 500 MG TAB PO SCH ×3 (09:27→20:11)
[2023-04-20] MEDS: LORATADINE 10 MG TAB PO SCH (09:27)
[2023-04-20] MEDS: LACTOBACILLUS ACIDOPHILUS CAP (BACID) PO SCH ×2 (09:27→17:13)
[2023-04-20] MEDS: MULTIVITAMINS/MINERALS THERAP 1 TAB PO SCH (09:27)
[2023-04-20] MEDS: PANTOPRAZOLE 40MG TAB (PROTONIX) PO SCH (09:27)
[2023-04-20] MEDS: ENOXAPARIN 40MG/0.4ML SYRINGE (J1650 PER 10MG) SC SCH (09:28)
[2023-04-20] MEDS: amLODIPine 5 MG TAB PO SCH ×2 (09:28→20:11)
[2023-04-20 14:00] VITALS: BP 124/60; TEMP 98.2; O2SAT 99
[2023-04-20 20:00] VITALS: BP 146/64; TEMP 97.9; O2SAT 94
[2023-04-20] MEDS: SENNA 8.6 MG TAB (SENOKOT) PO SCH (20:09)
[2023-04-20] MEDS: LOSARTAN 50MG TABLET PO SCH (20:10)
[2023-04-21] MEDS: traMADol 50 MG TAB PO SCH ×2 (05:38→11:56)
[2023-04-21] MEDS: LEVOTHYROXINE 75MCG TABLET (0.075MG) PO SCH (05:39)
[2023-04-21 06:00] VITALS: BP 130/60; TEMP 98; O2SAT 98
[2023-04-21 07:15] LABS: BASO # 0.1 10^3/uL (0.0-0.2); BASO % 0.7 % (0.0-1.0); EOS # 0.3 10^3/uL (0.0-0.5); EOS % 3.9 % (0.0-3.0); HEMATOCRIT 31.7 % (36.0-47.0); HEMOGLOBIN 10.1 g/dl (12.0-15.5); LYMPH # 0.7 10^3/uL (1.5-5.0); LYMPH % 8.5 % (24.0-44.0); MEAN CORPUSCULAR HEMOGLOBIN 29.3 pg (27.0-33.0); MEAN CORPUSCULAR HGB CONC 31.9 g/dl (32.0-36.5); MEAN CORPUSCULAR VOLUME 91.9 fl (80.0-96.0); MONO # 0.6 10^3/uL (0.0-0.8); MONO % 7.4 % (2.0-8.0); NEUTROPHILS # 6.5 10^3/uL (1.5-8.5); PLATELET COUNT, AUTOMATED 361 10^3/uL (150-450); RED BLOOD COUNT 3.45 10^6/uL (4.00-5.40); WHITE BLOOD COUNT 8.2 10^3/uL (4.0-10.0)
[2023-04-21 07:38] LABS: BLOOD UREA NITROGEN 18 MG/DL (9-23); CALCIUM LEVEL 9.2 MG/DL (8.3-10.6); CARBON DIOXIDE LEVEL 28 MMOL/L (20-31); CHLORIDE LEVEL 106 MMOL/L (98-107); CREATININE FOR GFR 0.58 MG/DL (0.55-1.30); GLOMERULAR FILTRATION RATE > 60.0 (>39); GLUCOSE, FASTING 109 MG/DL (74-106); POTASSIUM SERUM 4.3 MMOL/L (3.5-5.1); SODIUM LEVEL 141 MMOL/L (136-145)
[2023-04-21] MEDS: DOCUSATE SODIUM 100MG CAPSULE PO SCH ×2 (09:00→19:29)
[2023-04-21] MEDS: FLUTICASONE PROP 0.05% NASAL SPRAY 16 GM (FLONASE) NARES SCH ×2 (09:00→19:30)
[2023-04-21] MEDS: REMEDY PHYTOPLEX Z-GUARD PASTE 113GM TUBE (FROM STOREROOM PRODUCT) TOP SCH ×3 (09:00→19:30)
[2023-04-21] MEDS: PANTOPRAZOLE 40MG TAB (PROTONIX) PO SCH (09:26)
[2023-04-21] MEDS: ATORVASTATIN 20 MG TAB PO SCH (09:26)
[2023-04-21] MEDS: hydroCHLOROthiazide 12.5 MG CAPSULE PO SCH (09:26)
[2023-04-21] MEDS: LACTOBACILLUS ACIDOPHILUS CAP (BACID) PO SCH ×2 (09:26→17:11)
[2023-04-21] MEDS: MULTIVITAMINS/MINERALS THERAP 1 TAB PO SCH (09:26)
[2023-04-21] MEDS: LORATADINE 10 MG TAB PO SCH (09:26)
[2023-04-21] MEDS: ENOXAPARIN 40MG/0.4ML SYRINGE (J1650 PER 10MG) SC SCH (09:27)
[2023-04-21] MEDS: amLODIPine 5 MG TAB PO SCH ×2 (09:27→20:19)
[2023-04-21] MEDS: ACETAMINOPHEN 500 MG TAB PO SCH ×3 (09:27→20:18)
[2023-04-21 14:00] VITALS: BP 136/65; TEMP 98.5; O2SAT 98
[2023-04-21] MEDS: SENNA 8.6 MG TAB (SENOKOT) PO SCH (19:30)
[2023-04-21 20:00] VITALS: BP 137/62; TEMP 97.2; O2SAT 99
[2023-04-21] MEDS: LOSARTAN 50MG TABLET PO SCH (20:18)
[2023-04-22] MEDS: LEVOTHYROXINE 75MCG TABLET (0.075MG) PO SCH (05:41)
[2023-04-22] MEDS: traMADol 50 MG TAB PO SCH ×2 (05:43→11:45)
[2023-04-22 06:00] VITALS: BP 123/57; TEMP 98.2; O2SAT 97
[2023-04-22] MEDS: REMEDY PHYTOPLEX Z-GUARD PASTE 113GM TUBE (FROM STOREROOM PRODUCT) TOP SCH ×3 (07:17→20:39)
[2023-04-22] MEDS: DOCUSATE SODIUM 100MG CAPSULE PO SCH ×2 (07:17→19:30)
[2023-04-22] MEDS: FLUTICASONE PROP 0.05% NASAL SPRAY 16 GM (FLONASE) NARES SCH ×2 (07:17→20:39)
[2023-04-22] MEDS: VITAMIN D 50,000 UNITS CAPSULE (ERGOCALCIFEROL 1.25MG) PO SCH (07:21)
[2023-04-22] MEDS: ATORVASTATIN 20 MG TAB PO SCH (07:21)
[2023-04-22] MEDS: LACTOBACILLUS ACIDOPHILUS CAP (BACID) PO SCH ×2 (07:21→17:05)
[2023-04-22] MEDS: hydroCHLOROthiazide 12.5 MG CAPSULE PO SCH (07:22)
[2023-04-22] MEDS: LORATADINE 10 MG TAB PO SCH (07:22)
[2023-04-22] MEDS: ACETAMINOPHEN 500 MG TAB PO SCH ×3 (07:22→20:37)
[2023-04-22] MEDS: ENOXAPARIN 40MG/0.4ML SYRINGE (J1650 PER 10MG) SC SCH ×2 (07:22→07:23)
[2023-04-22] MEDS: amLODIPine 5 MG TAB PO SCH ×2 (07:22→20:37)
[2023-04-22] MEDS: PANTOPRAZOLE 40MG TAB (PROTONIX) PO SCH (07:23)
[2023-04-22] MEDS: MULTIVITAMINS/MINERALS THERAP 1 TAB PO SCH (07:23)
[2023-04-22 14:00] VITALS: BP 123/59; TEMP 98.2; O2SAT 98
[2023-04-22] MEDS ORDERED: HYDR-3490 PO (16:14)
[2023-04-22] MEDS ORDERED: ATOR1TAB21 PO (16:14)
[2023-04-22] MEDS ORDERED: AMLO1TAB24 PO (16:14)
[2023-04-22] MEDS ORDERED: LEVO75TA4 PO (16:14)
[2023-04-22] MEDS ORDERED: TRAM50TA2 PO (16:14)
[2023-04-22] MEDS ORDERED: PANT40TA29 PO (16:14)
[2023-04-22] MEDS ORDERED: LOSA100T46 PO (16:14)
[2023-04-22] MEDS ORDERED: XARE10TA PO (16:14)
[2023-04-22] MEDS ORDERED: ASPI81TA26 PO (16:53)
[2023-04-22] MEDS: SENNA 8.6 MG TAB (SENOKOT) PO SCH (19:31)
[2023-04-22] MEDS: LOSARTAN 50MG TABLET PO SCH (20:37)
[2023-04-22 20:43] VITALS: BP 145/66; TEMP 98.3; O2SAT 98
[2023-04-23] MEDS: LEVOTHYROXINE 75MCG TABLET (0.075MG) PO SCH (05:42)
[2023-04-23] MEDS: traMADol 50 MG TAB PO SCH (05:42)
[2023-04-23 06:00] VITALS: BP 150/70; TEMP 98.1; O2SAT 96
[2023-04-23] MEDS: DOCUSATE SODIUM 100MG CAPSULE PO SCH (08:36)
[2023-04-23] MEDS: ENOXAPARIN 40MG/0.4ML SYRINGE (J1650 PER 10MG) SC SCH (08:37)
[2023-04-23] MEDS: FLUTICASONE PROP 0.05% NASAL SPRAY 16 GM (FLONASE) NARES SCH (08:37)
[2023-04-23] MEDS: REMEDY PHYTOPLEX Z-GUARD PASTE 113GM TUBE (FROM STOREROOM PRODUCT) TOP SCH (08:37)
[2023-04-23] MEDS: hydroCHLOROthiazide 12.5 MG CAPSULE PO SCH (08:41)
[2023-04-23] MEDS: MULTIVITAMINS/MINERALS THERAP 1 TAB PO SCH (08:41)
[2023-04-23] MEDS: LORATADINE 10 MG TAB PO SCH (08:41)
[2023-04-23] MEDS: ATORVASTATIN 20 MG TAB PO SCH (08:41)
[2023-04-23 08:42] VITALS: BP 150/70
[2023-04-23] MEDS: LACTOBACILLUS ACIDOPHILUS CAP (BACID) PO SCH (08:42)
[2023-04-23] MEDS: PANTOPRAZOLE 40MG TAB (PROTONIX) PO SCH (08:42)
[2023-04-23] MEDS: ACETAMINOPHEN 500 MG TAB PO SCH (08:42)
[2023-04-23] MEDS: amLODIPine 5 MG TAB PO SCH (08:42)
== END 2023-04-23 09:40 | disposition home or self-care (01) | DRG 560 ==
LOC: M PM&R 18:40
PROVIDERS: ADMIT Physical Medicine & Rehabilitation; ATTEND Physical Medicine & Rehabilitation
PROC: 30233N1 Transfusion of Nonautologous Red Blood Cells into Peripheral Vein, Percutaneous Approach (ICD-10-PCS; principal; 2023-04-07)
DX: S72.141D Displaced intertrochanteric fracture of right femur, subsequent encounter for closed fracture with routine healing (principal); J98.11 Atelectasis; N39.0 Urinary tract infection, site not specified; I10 Essential (primary) hypertension; G47.33 Obstructive sleep apnea (adult) (pediatric); E03.9 Hypothyroidism, unspecified; E78.5 Hyperlipidemia, unspecified; D72.829 Elevated white blood cell count, unspecified; D50.0 Iron deficiency anemia secondary to blood loss (chronic); R26.89 Other abnormalities of gait and mobility; R09.02 Hypoxemia; M25.551 Pain in right hip; J30.2 Other seasonal allergic rhinitis; Z74.09 Other reduced mobility; Z74.1 Need for assistance with personal care; Z79.890 Hormone replacement therapy; Z79.899 Other long term (current) drug therapy; Z88.0 Allergy status to penicillin; Z88.5 Allergy status to narcotic agent

== ENCOUNTER → 2023-04-23 | Outpatient (CLI) | payer MEDICARE, OTHER ==
[~2023-04-23] MED LIST changes: +ASPI81TA26 PO; +LOVE1INJ SC; +PANT40TA29 PO; +TRAM50TA2 PO; +XARE10TA PO
== END ==
LOC: M SOG 10:54
PROVIDERS: ATTEND Orthopaedic Surgery
DX: M25.551 Pain in right hip (principal)

== ENCOUNTER → 2023-05-14 | Outpatient (CLI) | payer MEDICARE, OTHER | LOC: M SOG 13:17 | PROVIDERS: ATTEND Student in an Organized Health Care Education/Training Program | DX: S72.141D Displaced intertrochanteric fracture of right femur, subsequent encounter for closed fracture with routine healing (principal); W18.30XD Fall on same level, unspecified, subsequent encounter ==

== ENCOUNTER → 2023-06-04 | Outpatient (CLI) | payer MEDICARE, OTHER | LOC: M SOG 07:54 | PROVIDERS: ATTEND Student in an Organized Health Care Education/Training Program | DX: S72.141D Displaced intertrochanteric fracture of right femur, subsequent encounter for closed fracture with routine healing (principal); W18.30XD Fall on same level, unspecified, subsequent encounter ==

== ENCOUNTER → 2023-07-16 | Outpatient (REF) | payer MEDICARE, OTHER ==
[2023-07-16 19:23] LABS: BASO # 0.1 10^3/uL (0.0-0.2); BASO % 1.1 % (0.0-1.0); EOS # 0.2 10^3/uL (0.0-0.5); EOS % 4.2 % (0.0-3.0); LYMPH % 17.5 % (24.0-44.0); MEAN CORPUSCULAR HEMOGLOBIN 29.2 pg (27.0-33.0); MEAN CORPUSCULAR HGB CONC 32.5 g/dl (32.0-36.5); MEAN CORPUSCULAR VOLUME 89.9 fl (80.0-96.0); MONO # 0.5 10^3/uL (0.0-0.8); MONO % 8.9 % (2.0-8.0); NEUTROPHILS # 3.8 10^3/uL (1.5-8.5); NEUTROPHILS % 67.9 % (36.0-66.0); PLATELET COUNT, AUTOMATED 239 10^3/uL (150-450); RED BLOOD COUNT 4.45 10^6/uL (4.00-5.40); WHITE BLOOD COUNT 5.5 10^3/uL (4.0-10.0)
[2023-07-16 19:44] LABS: TOTAL IRON BINDING CAPACITY 310 UG/DL (250-425)
[2023-07-16 19:47] LABS: ALBUMIN 3.9 G/DL (3.2-5.2); ALKALINE PHOSPHATASE 145 U/L (46-116); ALT/SGPT 23 U/L (7.0-40); AST/SGOT 12 U/L (<34); BILIRUBIN,TOTAL 0.7 MG/DL (0.3-1.2); BLOOD UREA NITROGEN 19 MG/DL (9-23); CALCIUM LEVEL 9.4 MG/DL (8.3-10.6); CARBON DIOXIDE LEVEL 30 MMOL/L (20-31); CHLORIDE LEVEL 105 MMOL/L (98-107); CHOLESTEROL LEVEL 157 MG/DL (<200); CHOLESTEROL RISK RATIO 2.65 (<5); CREATININE FOR GFR 0.59 MG/DL (0.55-1.30); GLOMERULAR FILTRATION RATE > 60.0 (>39); GLUCOSE, FASTING 97 MG/DL (74-106); HDL CHOLESTEROL 59.1 MG/DL (>40); IRON (FE) 74 UG/DL (50-170); LDL CHOLESTEROL 72.3 MG/DL (<100); NON-HDL-C 97.9 MG/DL; PERCENT SATURATION 23.9 % (13.2-45.0); POTASSIUM SERUM 4.4 MMOL/L (3.5-5.1); SODIUM LEVEL 141 MMOL/L (136-145); THYROID STIMULATING HORMONE 1.752 uIU/ML (0.55-4.78); TOTAL 25(OH) VITAMIN D 75.5 NG/ML (20.0-100.0); TOTAL PROTEIN 6.6 G/DL (5.7-8.2); TRIGLYCERIDES LEVEL 128 MG/DL (<150); VITAMIN B12 LEVEL 497 PG/ML (211-911)
[2023-07-16 19:48] LABS: FERRITIN 21.2 NG/ML (7.3-270.7); FREE T4 1.11 NG/DL (0.89-1.76)
== END ==
LOC: M SFHCPLAZ 09:32
PROVIDERS: ATTEND Physician Assistant
DX: I10 Essential (primary) hypertension (principal); E78.5 Hyperlipidemia, unspecified; E55.9 Vitamin D deficiency, unspecified; E03.9 Hypothyroidism, unspecified; D64.9 Anemia, unspecified

== ENCOUNTER → 2023-08-20 | Outpatient (CLI) | payer MEDICARE, OTHER | LOC: M SOG 12:30 | PROVIDERS: ATTEND Student in an Organized Health Care Education/Training Program | DX: S72.141D Displaced intertrochanteric fracture of right femur, subsequent encounter for closed fracture with routine healing (principal) ==

== ENCOUNTER → 2023-11-19 | Outpatient (CLI) | payer MEDICARE, OTHER | LOC: M SOG 08:05 | PROVIDERS: ATTEND Physician Assistant | DX: S72.141D Displaced intertrochanteric fracture of right femur, subsequent encounter for closed fracture with routine healing (principal) ==

== ENCOUNTER 2024-03-01 06:40 | Day surgery (SDC) | payer MEDICARE, OTHER ==
[~2024-03-01] VITALS: Ht 167.6 cm; Wt 99.0 kg
[~2024-03-01 06:40] MED LIST changes: +NORV5TAB PO; +OMEP-173 PO
[2024-03-01] MEDS: NS 1,000 ML IV ONE (07:12)
[2024-03-01] MEDS ORDERED: propofoL 500 MG/50 ML VIAL As Ordered ONE (08:03)
[2024-03-01 08:08] VITALS: TEMP 96.8
[2024-03-01 08:25] VITALS: BP 137/63; O2SAT 96
== END 2024-03-01 08:38 | disposition home or self-care (01) ==
LOC: M OPP 06:40
PROVIDERS: ATTEND Internal Medicine Gastroenterology
DX: Z12.11 Encounter for screening for malignant neoplasm of colon (principal); K57.30 Diverticulosis of large intestine without perforation or abscess without bleeding; K44.9 Diaphragmatic hernia without obstruction or gangrene; K22.89 Other specified disease of esophagus; K21.9 Gastro-esophageal reflux disease without esophagitis; I10 Essential (primary) hypertension; Z80.0 Family history of malignant neoplasm of digestive organs; E78.00 Pure hypercholesterolemia, unspecified; E03.9 Hypothyroidism, unspecified; G47.30 Sleep apnea, unspecified; Z79.899 Other long term (current) drug therapy; Z88.0 Allergy status to penicillin; Z88.5 Allergy status to narcotic agent; Z90.710 Acquired absence of both cervix and uterus; Z79.890 Hormone replacement therapy
CPT/HCPCS: 88305; G0105

== ENCOUNTER → 2024-03-21 | Outpatient (CLI) | payer MEDICARE, OTHER | LOC: M SOG 08:00 | PROVIDERS: ATTEND Physician Assistant | DX: S72.141D Displaced intertrochanteric fracture of right femur, subsequent encounter for closed fracture with routine healing (principal) ==

== ENCOUNTER → 2024-08-04 | Outpatient (REF) | payer MEDICARE, OTHER ==
[2024-08-04 17:35] LABS: BASO # 0.1 10^3/uL (0.0-0.2); BASO % 0.9 % (0.0-1.0); EOS # 0.3 10^3/uL (0.0-0.5); HEMATOCRIT 39.6 % (36.0-47.0); HEMOGLOBIN 12.8 g/dl (12.0-15.5); LYMPH # 1.1 10^3/uL (1.5-5.0); LYMPH % 16.9 % (24.0-44.0); MEAN CORPUSCULAR HEMOGLOBIN 27.5 pg (27.0-33.0); MEAN CORPUSCULAR HGB CONC 32.3 g/dl (32.0-36.5); MONO # 0.6 10^3/uL (0.0-0.8); NEUTROPHILS # 4.5 10^3/uL (1.5-8.5); NEUTROPHILS % 68.9 % (36.0-66.0); PLATELET COUNT, AUTOMATED 314 10^3/uL (150-450); RED BLOOD COUNT 4.66 10^6/uL (4.00-5.40); WHITE BLOOD COUNT 6.6 10^3/uL (4.0-10.0)
[2024-08-04 18:07] LABS: FERRITIN 17.5 NG/ML (7.3-270.7); THYROID STIMULATING HORMONE 1.177 uIU/ML (0.55-4.78)
[2024-08-04 18:08] LABS: FREE T4 1.35 NG/DL (0.89-1.76); TOTAL 25(OH) VITAMIN D 83.7 NG/ML (20.0-100.0)
[2024-08-04 18:12] LABS: IRON (FE) 41 UG/DL (50-170); PERCENT SATURATION 11.6 % (13.2-45.0); TOTAL IRON BINDING CAPACITY 353 UG/DL (250-425)
[2024-08-04 18:15] LABS: ALKALINE PHOSPHATASE 115 U/L (46-116); ALT/SGPT 19 U/L (7.0-40); AST/SGOT 16 U/L (<34); BILIRUBIN,TOTAL 0.6 MG/DL (0.3-1.2); BLOOD UREA NITROGEN 16 MG/DL (9-23); CALCIUM LEVEL 10.2 MG/DL (8.3-10.6); CARBON DIOXIDE LEVEL 30 MMOL/L (20-31); CHLORIDE LEVEL 107 MMOL/L (98-107); CHOLESTEROL LEVEL 159 MG/DL (<200); CHOLESTEROL RISK RATIO 3.21 (<5); CREATININE FOR GFR 0.72 MG/DL (0.55-1.30); GLOMERULAR FILTRATION RATE > 60.0 (>39); GLUCOSE, FASTING 100 MG/DL (74-106); HDL CHOLESTEROL 49.4 MG/DL (>40); LDL CHOLESTEROL 81.6 MG/DL (<100); NON-HDL-C 109.6 MG/DL; POTASSIUM SERUM 4.8 MMOL/L (3.5-5.1); SODIUM LEVEL 141 MMOL/L (136-145); TOTAL PROTEIN 7.1 G/DL (5.7-8.2); TRIGLYCERIDES LEVEL 140 MG/DL (<150)
[2024-08-04 19:36] LABS: HEMOGLOBIN A1c 5.9 % (4.0-6.0)
== END ==
LOC: M SFHCPLAZ 09:56
PROVIDERS: ATTEND Physician Assistant
DX: I10 Essential (primary) hypertension (principal); D50.9 Iron deficiency anemia, unspecified; E55.9 Vitamin D deficiency, unspecified; E03.9 Hypothyroidism, unspecified; E78.2 Mixed hyperlipidemia; Z13.1 Encounter for screening for diabetes mellitus